=== PATIENT | female | born 1960 | race Caucasian/White ===

== ENCOUNTER → 2024-11-25 10:18 | Outpatient (REF) | payer MEDICARE, SELFPAY ==
[2024-11-25 10:40] LABS: MANUAL DIFF FLAG NO
--- NOTE | 2024-11-25 10:47 | ECG_ITS ---
Test Reason : PRE OP Blood Pressure : */* mmHG Vent. Rate : 89 BPM Atrial Rate : 89 BPM P-R Int : 146 ms QRS Dur : 84 ms QT Int : 352 ms P-R-T Axes : 18 21 25 degrees QTcB Int : 428 ms Normal sinus rhythm Possible Inferior infarct , age undetermined Abnormal ECG No previous ECGs available Referred By: Mike Marin Electronically Signed By: NICK HERNANDEZ MD
[2024-11-25 11:16] LABS: Basophils Percent Auto 0.6 % (0-2); Eosinophils Absolute Auto 0.1 X10*3/uL (0.0-0.4); Eosinophils Percent Auto 2.2 % (0-4); Hematocrit 41.7 % (37.0-47.0); Imm Gran Abs Auto 0.02 X10*3/uL (0.00-0.03); Imm Gran Pct Auto 0.3 % (0.0-0.4); Lymphocytes Absolute Auto 2.5 X10*3/uL (1.2-4.9); Lymphocytes Percent Auto 39.8 % (20-40); Mean Corpuscular HGB Conc 33.6 g/dl (31.0-35.0); Mean Corpuscular Hemoglobin 30.4 pg (27.0-33.0); Mean Corpuscular Volume 90.7 fL (80.0-98.0); Mean Platelet Volume 10.2 fL (9.4-12.3); Monocytes Absolute Auto 0.4 X10*3/uL (0.1-1.2); Monocytes Percent Auto 5.5 % (2-11); Neutrophils Absolute Auto 3.3 x10*3/uL (2.0-8.3); Neutrophils Percent Auto 51.6 % (45-73); Platelet Count 214 X10*3/uL (160-400); Red Cell Distribution Width 13.1 % (11.0-16.0); White Blood Count 6.4 X10*3/uL (4.8-10.8)
[2024-11-25 11:29] LABS: Estimated Average Glucose 160 mg/dL; Hemoglobin A1C 203.6548 umol/L; Hemoglobin A1c % 7.2 % (<6.0); Total Hemoglobin (HGBA1C) 3660.2242 umol/L
--- OUTSIDE RECORDS SUMMARY | 2024-11-25 11:59 | XMS_ITS | Clinical Summary ---
Author Organization [facility] Address [address] [place] [address] Care Team Providers Care Warehouse Assistant Name Role Phone Mike Marin MD Primary Care Provider [phone] Surgical History Surgery Date Site/Laterality Comments BACK SURGERY PROCEDURE:BACK SURGERY TUBAL LIGATION PROCEDURE:TUBAL LIGATION COLONOSCOPY PROCEDURE:COLONOSCOPY TONSILLECTOMY PROCEDURE:TONSILLECTOMY Medical History Medical History Date Comments Hypothyroidism DX:Hypothyroidis m Graves disease DX:Graves diseas e DM II (diabetes mellitus, ty pe II), controlled (CMS/HCC) DX:DM II (diabetes mellitus, type II), controlled ([facility]) Low back pain DX:Low back pain Hyperlipemia DX:Hyperlipemia Family History Medical History Relation Name Comments No Known Problems Brother 1 Hypertension Brother 2 Heart disease Father Hypertension Father COPD Mother Hypertension Mother Pulmonary embolism Mother No Known Problems Sister 1 No Known Problems Sister 2 Relation Name Status Comments Brother 1 Alive Brother 2 Alive Father (Age 80) Mother (Age 85) Sister 1 Alive Sister 2 Alive Social History Tobacco Use Types Packs/Day Years Used Date Smoking Tobacco: Former Cigarettes Q uit: 09/25/1992 Alcohol Use Standard Drinks/Week Comments Yes 0 (1 standard drink = 0.6 oz pur e alcohol) Comments Unknown Sex and Gender Information Value Date Recorded Sex Assigned at Not on file Legal Sex Female 8:18 PM EST Gender Identity Not on file Sexual Orientation Not on file Obstetrics History Last Filed Vital Signs Vital Sign Reading Time Taken Comments Blood Pressure 153/88 04/07/2023 8:22 AM EDT Sitting Left arm Pulse 90 04/07/2023 8:22 AM EDT Temperature - - Respiratory Rate - - Oxygen Saturation - - Inhaled Oxygen Concentration - - Weight 97.5 kg (215 lb) 04/07/2023 8:22 AM EDT Height 153.5 cm (5' 0.43 ) 04/07/2023 8 :22 AM EDT Body Mass Index 41.39 04/07/2023 8:22 AM EDT Plan of Treatment Health Maintenance Due Date Last Done Comments Breast Cancer Screening 1958 DTaP,Tdap,and Td Vaccines (1 - Tdap) 1977 Pneumococcal Vaccine: 50+ Ye ars (1 of 1 - PCV) 2008 Zoster Vaccines (1 of 2) 2008 RSV Immunization Patients 60 + Years Old (1 - Risk 60-74 years 1-dose series) 2018 Cholesterol Screening (Lipid Panel) 10/19/2023 Colorectal Cancer Screening: Colonoscopy 10/19/2023 Depression Screening 10/19/2023 Falls Risk Assessment 10/19/2023 Hepatitis C Screening 10/19/2023 Osteoporosis Screening (Bone Density Screening) 10/19/2023 Social Influencers of Health Screening 10/19/2023 COVID-19 Vaccine ( - 2023-2 5 season) 2024 Influenza Vaccine (#1) 2024 HIB Vaccines Aged Out No longer eligi ble based on patient's age to complete this topic HPV Vaccines Aged Out No longer eligi ble based on patient's age to complete this topic Hepatitis A Vaccines Aged Out No long er eligible based on patient's age to complete this topic Hepatitis B Vaccines Aged Out No long er eligible based on patient's age to complete this topic IPV Vaccines Aged Out No longer eligi ble based on patient's age to complete this topic MMR Vaccines Aged Out No longer eligi ble based on patient's age to complete this topic Meningococcal ACWY Vaccine Aged Out N o longer eligible based on patient's age to complete this topic Meningococcal B Vacine Aged Out No lo nger eligible based on patient's age to complete this topic RSV Immunization Patients Un eva 20 months Aged Out No longer eligible b ased on patient's age to complete this topic Varicella Vaccines Aged Out No longer eligible based on patient's age to complete this topic Medical Devices Implanted Type Area Brine Tank Tender Device Identifier Shelf Expiration Date Model / Serial / Lot Tritanium Cluster Hole Shell 48mm Stry-How [id number] Implanted:Qty: 1 on 05/01/2023 by Gonzales Wong MD Right: Hip [employer] [id number] 03/07/2028 702-04-48D / / [id number] Liner Trident X3 0 Deg 36mm 3.9mm Sz D Stry-Howm [id number] Implanted:Qty: 1 on 05/01/2023 by Gonzales Wong MD Right: Hip [employer] [id number] 01/12/2028 723-00-36D / / [id number] Lp Hex Screw 6.5x15mm Stry-Howm [id number] Implanted:Qty: 1 on 05/01/2023 by Gonzales Wong MD Right: Hip [employer] [id number] 11/15/2027 [id number] / / [id number] Lp Hex Screw 6.5x25mm Stry-Howm [id number] 58 Implanted:Qty: 1 on 05/01/2023 by Gonzales Wong MD Right: Hip [employer] [id number] 01/18/2028 2177-5413 / / [id number] Size 4 Accolade Ii 127 Deg Stry-Howm [id number] Implanted:Qty: 1 on 05/01/2023 by Gonzales Wong MD Right: Hip [employer] [id number] 03/15/2028 8204-7173 / / [id number] Hip Head Delta Biolox 36mm -5 Stry-Howm [id number] Implanted:Qty: 1 on 05/01/2023 by Gonzales Wong MD Right: Hip [employer] [id number] 02/05/2028 6570-0-036 / / [id number] Care Teams Warehouse Assistant Relationship Specialty Start Date End Date Mike Marin MD [address] [place] [id number] PCP - General 04/27/23
--- OUTSIDE RECORDS SUMMARY | 2024-11-25 11:59 | XMS_ITS ---
Author Organization Mike Marin III, MD Address [address] [place] [address] [place] [address] Care Team Providers Care Press Helper Name Role Phone Mike Marin Primary Care Provider [phone] Results Component Value Reference Range Notes Hemoglobin A1c (Not yet revi ewed by provider) Interpretation: Performing Lab:[facility], [address] [place] [phone] Notes/Report: Hemoglobin A1c % 7.2 <6.0 % [...] average glucose, using the formula of the L8O-Uvaduxk Average Glucose study (ADAG), Diabetes Care, Vol.31,#8, Apr. 2007 REASON FOR VISIT Pre Op Appt Social History Sex Assigned At : Social History Observation Description Sex Assigned At Female Encounters Encounter Location Date Provider Diagnosis Mike Marin III, MD [address] [place] [address] [place] [address] 11/22/2024 Mike gomez Z01.818 ; Type 2 diabetes mellitus without [...] Order Date CBC WITH AUTO DIFF 11/22/2024 Basic Metabolic Panel 11/22/2024 ECG 12 lead EKG 11/22/2024 Hemoglobin A1c 11/22/2024 Next Appt Details Provider Name:Mike Marin, 11/29/2024 01:00:00 PM, [address] [place] [address] [address] [place], KARTHIK WEBB, [address], Provider Name:Mike Marin, 01/14/2025 10:00:00 AM, [address] [place] [address] [address] [place], KARTHIK WEBB, [address], Progress Notes * Cherise ROSSDOB: 8 (64 yo F)Acc No.[id number]:11/22/2024 Patient:?Cherise ROSS :1960???Age:64 Y???Sex:Female Address:[address] [place] [phone] Subjective: * Chief Complaints: * ???Pre Op Appt * Medical History:? * Surgical History:? * Hospitalization/Major Diagno stic Procedure:? * Medications:? Objective: * Vitals:? * Physical Examination:? Assessment: * Assessment: 1.?Preoperative clearance - Z01.818???2.?Type 2 diabetes mellitus without complication, without long-term current use of insulin - E11.9???3.?Obesity (BMI 30-39.9) - E66.9??? Plan: * Treatment: ? Value Reference Range ?Hemoglobin A1c % 7.2 H <6.0 - % * ?Estimated Average Glucose 160 - mg/dL ?Imaging: ECG 12 lead EKG2.?Type 2 diabetes mellitus without complication, without long-term current use of insulin?LAB: CBC WITH AUTO DIFF ?LAB: Basic Metabolic Panel ?LAB: Hemoglobin A1c (Collection Date & Time - 11/25/2024 10:39 AM)* ? Value Reference Range ?Hemoglobin A1c % 7.2 H <6.0 - % * ?Estimated Average Glucose 160 - mg/dL 3.?Obesity (BMI 30-39.9)?LAB: CBC WITH AUTO DIFF ?LAB: Basic Metabolic Panel ?LAB: Hemoglobin A1c (Collection Date & Time - 11/25/2024 10:39 AM)* ? Value Reference Range ?Hemoglobin A1c % 7.2 H <6.0 - % * ?Estimated Average Glucose 160 - mg/dL * Procedure Codes:? * true * Date:? Generated for Chadd luna/Jose/eTransmitting on:?11/25/2024 11:59 AM EST
--- OUTSIDE RECORDS SUMMARY | 2024-11-25 11:59 | XMS_ITS ---
Author Organization Mike Marin III, MD Address [address] [place] [address] [place] [address] Care Team Providers Care Commodity Lead Name Role Phone Mike Marin Primary Care Provider REASON FOR VISIT Follow up Social History Sex Assigned At : Social History Observation Description Sex Assigned At Female Encounters Encounter Location Date Provider Diagnosis Mike Marin III, MD [address] [place] [address] [place] [address] 04/10/2024 Mike Marin Plan Of Treatment Next Appt Details Provider Name:Mike Marin, 11/29/2024 01:00:00 PM, [address] [place] [address] [place], [address], Provider Name:Mike Marin, 01/14/2025 10:00:00 AM, [address] [place] [address] [place], [address], Progress Notes * Cherise ROSSDOB: 8 (64 yo F)Acc No.[id number]:04/10/2024 Progress Notes Patient:?Cherise ROSS Provider:?Mike Marin MD :1960???Age:63 Y???Sex:Female D ate:04/10/2024 Address:[address] [place] [id number] Subjective: * Chief Complaints: * ???1. Follow up. * Medical History:? Objective: * Vitals:? Assessment: Plan: * Treatment: * Images: * The named appointment provid er may or may not be the originator of this progress note, and it is not deemed complete until electronically signed by the appointment provider. Sign off status: Pending * Provider:?Mike Marin MD Date:?03/25 Generated for Chadd luna/Jose/Antonioitting on:?11/25/2024 11:59 AM EST
--- OUTSIDE RECORDS SUMMARY | 2024-11-25 11:59 | XMS_ITS | Clinical Summary ---
Author Organization [facility] Address [address] [place] [address] Care Team Providers Care Shovel Logger Name Role Phone Mike Marin MD Primary Care Provider [phone] Allergies Active Allergy Reactions Criticality Noted Date Comments Exenatide Hives 04/03/2023 Medications Medication Sig Dispensed Refills Start Date End Date Status levothyroxine (SYNTHROID) tablet 100 mcg daily. 0 02/07/2023 Active liothyronine (CYTOMEL) tablet 5 mcg Take 1 tablet (5 mcg total) by mouth daily. empty stomach 0 03/27/2023 Active simvastatin (ZOCOR) tablet 40 mg Take 1 tablet (40 mg total) by mouth every evening. 0 03/04/2023 Active Trulicity 1.5 MG/0.5ML subcutaneous pen-injector On Monday night 0 03/27/2023 Active Multiple Vitamin (MULTIVITAMIN ADULT PO) Take 1 tablet by mouth daily. 0 10/17/2008 Active Acetaminophen (TYLENOL EXTRA STRENGTH PO) Take by mouth every 8 (eight) hours as needed. 0 Active meloxicam (MOBIC) 15 MG tablet Take 1 tablet (15 mg total) by mouth daily. 30 tablet 0 05/02/2023 Active methocarbamol (ROBAXIN) 750 MG tablet Take 1 tablet (750 mg total) by mouth every 6 (six) hours as needed (for muscle spasm). 30 tablet 0 05/02/2023 Active oxyCODONE (ROXICODONE) 5 MG immediate release tablet Take 1 tablet (5 mg total) by mouth every 4 (four) hours as needed for pain. 25 tablet 0 05/02/2023 Active senna-docusate (PERICOLACE) 8.6-50 MG Take 1 tablet by mouth 2 (two) times a day. 20 tablet 0 05/02/2023 Active Active Problems Problem Noted Date Diagnosed Date Morbid obesity 04/07/2023 Family history of pulmonary embolism 04/07/2023 Osteoarthritis of right hip 04/07/2023 History of hyperlipidemia 04/07/2023 Family History Medical History Relation Name Comments No Sig Med Hx Brother 1 Hypertension Brother 2 Heart disease Father Hypertension Father COPD Mother Hypertension Mother Pulmonary embolism Mother No Sig Med Hx Sister 1 No Sig Med Hx Sister 2 Relation Name Status Comments Brother 1 Alive Brother 2 Alive Father (Age 80) Mother (Age 85) Sister 1 Alive Sister 2 Alive Social History Tobacco Use Types Packs/Day Years Used Date Smoking Tobacco: Former Cigarettes 0.5 5 Q uit: 1992 Alcohol Use Standard Drinks/Week Comments Yes 0 (1 standard drink = 0.6 oz pur e alcohol) rarely Sex and Gender Information Value Date Recorded Sex Assigned at Female 04/03/2023 9:17 AM EDT Gender Identity Female 04/03/2023 9:17 AM EDT Sexual Orientation Not on file Job Start Date Occupation Industry Not on file Not on file Not on file Last Filed Vital Signs Vital Sign Reading Time Taken Comments Blood Pressure 120/64 05/02/2023 6:16 AM EDT Pulse 89 05/02/2023 6:16 AM EDT Temperature 36.6 ??C (97.9 ??F) 05/02/2023 6:16 AM ED T Respiratory Rate 16 05/02/2023 6:16 AM EDT Oxygen Saturation 95% 05/02/2023 6:16 AM EDT Inhaled Oxygen Concentration - - Weight 98 kg (216 lb) 05/01/2023 6:52 AM EDT Height 156.2 cm (5' 1.5 ) 05/01/2023 6:52 AM EDT Body Mass Index 40.15 05/01/2023 6:52 AM EDT Plan of Treatment Health Maintenance Due Date Last Done Comments Hepatitis C Screening 1960 COVID-19 Vaccine (#1) 1958 Depression Screening 1970 BMI Counseling 1976 Preventative Health Evaluation 1976 DTap / Tdap / Td (1 - Tdap) 1977 Colon Cancer Screening (Colonoscopy) 2003 Breast Cancer Screening (Mammogram) 2008 Shingrix-Zoster Vaccine (1 o f 2) 2008 Fall Risk Assessment 2023 Osteoporosis Screening (DEXA Scan) 2023 Pneumococcal Vaccine (2 of 2 - PCV) 2023 10/19/2011 Influenza Vaccine (#1) 2024 2, 08/18/2021, 06/25/2015 RSV Adult > 60+ Yrs or (1 - 1-dose 75+ series) 2033 Hepatitis B Vaccines Aged Out No long er eligible based on patient's age to complete this topic RSV Ped < 20 months Aged Out No longe r eligible based on patient's age to complete this topic Medical Devices Implanted Type Area Fashion Buyer Device Identifier Shelf Expiration Date Model / Serial / Lot Tritanium Cluster Hole Shell 48mm Stry-Howm [id number] - [id number] Implanted:Qty: 1 on 05/01/2023 by Gonzales Wong MD at [facility] [place] [facility] and Med Right: Hip [employer] [id number] 03/07/2028 702-04-48D / / [id number] Liner Trident X3 0 Deg 36mm 3.9mm Sz D Stry-Howm [id number] - [id number] Implanted:Qty: 1 on 05/01/2023 by Gonzales Wong MD at [facility] and Med Right: Hip [employer] [id number] 01/12/2028 723-00-36D / / [id number] Lp Hex Screw 6.5x15mm Stry-Howm [id number] - [id number] Implanted:Qty: 1 on 05/01/2023 by Gonzales Wong MD at [facility] and Med Right: Hip [employer] [id number] 11/15/2027 1289-9880 / / [id number] Lp Hex Screw 6.5x25mm Stry-Howm [id number] 58 - [id number] Implanted:Qty: 1 on 05/01/2023 by [place] Wong [place] [facility] [place]: Hip [employer] [id number] 01/18/2028 7789-6913 / / [id number] Size 4 Accolade Ii 127 Deg Stry-Howm [id number] 76 - [id number] Implanted:Qty: 1 on 05/01/2023 by Gonzales Wong MD at [facility] Right: Hip [employer] [id number] 03/15/2028 7641-3269 / / [id number] Hip Head Delta Biolox 36mm -5 Stry-Howm [id number] - [id number] Implanted:Qty: 1 on 05/01/2023 by Gonzales Wong MD at [facility] Right: Hip [employer] [id number] 02/05/2028 6570-0-036 / / [id number] Advance Directives For more information, please contact: [phone] Latest Code Status on File Code Status Date Activated Date Inactivated Comments Full Code 05/01/2023 8:56 AM 05/02/2023 5:45 PM This co de status was ascertained in the following way: per living will or healthcare instructions . Code Status History Code Status Date Activated Date Inactivated Comments Full Code 05/01/2023 6:28 AM 05/01/2023 8:56 AM This co de status was ascertained in the following way: discussion with patient . Care Teams Shovel Logger Relationship Specialty Start Date End Date Mike Marin MD [address] [place] [address] PCP - General Oncology 04/27/23
--- OUTSIDE RECORDS SUMMARY | 2024-11-25 12:00 | XMS_ITS ---
Author Organization Mike Marin III, MD Address [address] [place] [address] Care Team Providers Care Television Cameraman Name Role Phone Mike Marin Primary Care Provider Allergies Allergen (clinical drug ingredient) Drug/Non Drug Allergy documented on EMR Reaction Allergy Type Onset Date Status exenatide Byetta 10 MCG Pen Unknown Drug Allergy [...] Date Provider Diagnosis Mike Marin III, MD [address] [place] [address] [place] [address] 06/27/2024 Mike Marin Hypothyroidism, unspecified E03.9 ; [...] Barbara son: OV, Annual Exam Provider Name:Mike Marin, 11/29/2024 01:00:00 PM, [address], [place], [id number], Provider Name:Mike aMrin, 01/14/2025 10:00:00 AM, [address], [place], [id number], Progress Notes * Cherise ROSSDOB: [birth year] (64 yo F)Acc No.[id number]:06/27/2024 Progress Notes Patient:?Cherise ROSS Provider:?Mike Marin MD :1960???Age:64 Y???Sex:Female D ate:06/27/2024 Address:[address] [facility] Subjective: * Chief Complaints: * ???Morbid obesityDiabetes me llitusChronic low back painHypothyroidRight hip replacementHypertension * HPI: ???COVID-19 Screening:?She returns for medical management.? 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 She and her will be spending 6 months of the year in [place].? She will leave in the coming July and return in December of 2024.? Her prescriptions will be transferred to [facility] in [place].? She will continue on Trilisate.? She declined an offer Ozempic her weight has been stable.? She has no new concerns. Blood work done June 26, 2024 showed white count 7.5, hematocrit 43.9 platelets 225, glucose 190, BUN 15, creatinine 0.61, total cholesterol 174, triglycerides 198, HDL 44 LDL 96 A1c 7.9. ?Questions?Have you experienced fever, chills, cough, sore throat, shortness of breath, difficulty breathing, muscle aches, loss of taste or smell??No ?Have you been exposed to the virus within the last 10 days??No ?Have you travelled internationally in the last 10 days??No ?Have you been exposed to COVID-19 in the past??Yes * ROS:?General/Constitutional:?pain?only normal aches and pains.?Chills?denies.?Fatigue?admits.?Fever?denies.?ENT:?Decreased hearing?denies.?Respiratory:?Cough?denies.?Cardiovascular:?Chest pain with exertion?denies.?Dyspnea on exertion?denies.?Shortness of breath?denies.?Gastrointestinal:?Constipation?occasional.?Decreased appetite?denies.?Diarrhea?denies.?Heartburn?occasional.?Nausea?denies.?Rectal bleeding?denies.?Vomiting?denies.?Hematology:?bruising?denies.?petechiae?denies.?Swollen glands?none have been noted.?Genitourinary:?Frequent urination?at night.?Musculoskeletal:?Muscle aches?denies.?Painful joints?denies.?Sciatica?denies.?Weakness?denies.?Skin:?Itching?denies.?Rash?denies.?Skin lesion(s)?denies.?Neurologic:?Difficulty speaking?denies.?Dizziness?denies.?Headache?denies.?Low back pain?denies.?Psychiatric:?Depressed mood?denies.? * Medical History:? * Surgical History:?breast bio psy 2007fracture right wrist lumbosacral spine decompressions procedure 1997tonsillectomy tubal ligation [id number] colonoscopy Right total hip replacement 05/01/2023 * Hospitalization/Major Diagno stic Procedure:?Denies Past Hospitalization * Family History:?Father: dece ased 78 yrs, coronary artery disease, hypertension, type II diabetes.?Mother: alive 75 yrs, hypertension, hyperlipidemia.?Paternal Grand Father: , stroke.?Maternal Grand Mother: , stomach cancer.?Spouse: alive.?2 brother(s) , 2 sister(s) - healthy. 2 daughter(s) - healthy. .? Her brothers and sisters, and children are healthy and well. * Social History:?Tobacco Use:?Tobacco Use/Smoking?Patient is a?former smoker ?How long has it been since you last smoked??> 10 years ?Additional Findings: Tobacco Non-User?Ex-cigarette smoker ???She was born in [place], [place]. She has 2 daughters, Gay and Abby. She has 2 brothers Sudhakar, Jeremiah and 2 sisters Abby and Rohit. * Medications:?TakingOmeprazol e 20 MG Capsule Delayed Release 1 capsule [...] reviewed and reconciled with the patient * Allergies:?Byetta 10 MCG Pen no[Allergies Verified] Objective: * Vitals:?Ht: 62, Wt:237, BMI: 43.34, BP:134/83, HR:91, Temp:97.5, Wt-k.5. * Examination: ???General Examination: ?GENERAL APPEARANCE:?pleasant, well nourished, well developed, in no acute distress, calm and relaxed, morbidly obese, woman.?HEAD:?atraumatic, normocephalic.?EYES:?eomi, perrla, anicteric, conjugate.?EARS:?normal.?NOSE:?septum intact.?ORAL CAVITY:?normal, unremarkable.?NECK/THYROID:?no jugular venous distention, no carotid bruit, thyroid normal.?LYMPH NODES:?no enlarged lymph nodes,spleen normal.?SKIN:?no suspicious lesions, anicteric.?HEART:?no clicks, gallops, murmurs, or rubs, regular rhythm, S1, S2 normal, no s3, or vascular bruits.?LUNGS:?clear to auscultation .?BREASTS:?not examined.?ABDOMEN:?bowel sounds normal, no ascites, no organomegaly, no mass, morbid obesity.?RECTAL EXAM:?not examined.?MUSCULOSKELETAL:?extremities unremarkable, no clubbing, cyanosis or edema,Surgical scar right hip.?PERIPHERAL PULSES:?normal.?NEUROLOGIC:?alert and oriented, cranial nerves 2-12 grossly intact, deep tendon reflexes 2+ symmetrical, motor strength normal upper and lower extremities, sensory exam intact.?PSYCH:?alert, oriented, thought process logical, goal directed, speech clear, good eye contact, cooperative with exam, cognitive function intact.? Assessment: * Assessment: 1.?Type 2 diabetes mellitus without complication, without long-term current use of insulin - E11.9 (Primary)???Notes :We have discussed her hemoglobin A1c at length.? We have discussed her weight loss strategy. We have discussed the use of injected semaglutide.? She is going to continue her efforts at lifestyle modification to lose weight.? No change in her medications was made.???2.?Hypothyroidism, unspecified - E03.9???Notes :Her thyroid function tests are in the normal range and no change in her medication dosage is needed.???3.?Obesity (BMI 30-39.9) - E66.9???Notes :Her weight is stable in the morbidly obese range.? We discussed this at length today.? She declined the use of semaglutide.???4.?Other intervertebral disc degeneration, lumbosacral region - M51.37???Notes :The pain in her spine has been absent lately and she is completing all of the activities of daily living without difficulty.???5.?Other benign mammary dysplasias of unspecified breast - N60.89???Notes :She conducts breast self-examination and no findings are evident. She will continue to have annual mammograms.???6.?Primary osteoarthritis of right hip - M16.11???Notes :She has no pain in her right hip with ambulation at this time after arthroplasty..???7.?Former smoker - Z87.891???Notes :She is highly motivated not to smoke and has a plan for prevention of relapse in times of stress or illness.??? Plan: * Treatment: 2.?Hypothyroidism, unspecifi ed? Continue Liothyronine Sodium Tablet, 5 MCG, 1 tablet on an empty stomach, Orally, Once a day, 90 days, 90 Tablet, Refills 3;?Continue Synthroid Tablet, 100 MCG, as directed, Orally, Once a day, 90 days, 90, Refills 3;?Continue Omeprazole Capsule Delayed Release, 20 MG, 1 capsule 30 minutes before morning meal, Orally, Once a day;?Continue Trulicity Solution Pen-injector, 1.5 MG/0.5ML, as directed, Subcutaneous, weekly.?LAB: PROFILE, FASTING (COMPREHENSIVE METABOLIC) ?LAB: TSH (THYROID STIMULATING HORMONE) ?LAB: CBC WITH AUTO DIFF ?LAB: Lipid Panel ?LAB: Free T4 (Free Thyroxine) ?LAB: Hemoglobin A1c 3.?Obesity (BMI 30-39.9)?LAB: PROFILE, FASTING (COMPREHENSIVE METABOLIC) ?LAB: TSH (THYROID STIMULATING HORMONE) ?LAB: CBC WITH AUTO DIFF ?LAB: Lipid Panel ?LAB: Free T4 (Free Thyroxine) ?LAB: Hemoglobin A1c 4.?Others? Continue Simvastatin Tablet, 40 MG, 1 tablet in the evening, Orally, Once a day, 90 days, 90 Tablet, Refills 3;?Continue Trulicity Solution Pen-injector, 1.5 MG/0.5ML, as directed, Subcutaneous, weekly, 90 days, 12, Refills 3;?Continue Valsartan Tablet, 80 MG, 1 tablet, Orally, Once a day, 90 days, 90 Tablet, Refills 3.?? * Procedure Codes:? * Preventive Medicine:? ??Counseling:?Care goal follow-up plan:?Counseling for abnormal BMI given?Yes ?Above Normal BMI Follow-up?Dietary management education, guidance, and counseling, Dietary needs education, Exercise promotion: strength training, Exercise promotion: stretching, Feeding regime, Giving encouragement to exercise, Lifestyle education regarding diet, Nutrition / feeding management, Nutrition therapy, Prescribed activity/exercise education, Prescribed diet education, Prescribed dietary intake, Special diet education, Weight monitoring , Intervention, Order not done: Medical or Other reason not done ?Smoking/Tobacco Use?Patient counseled on the dangers of tobacco use and urged to quit.?06/27/2024 ??DM Care Plan:?Patient Lifestyle Goals?Patient wants to be able to manage diabetes without too much effort.?Treatment Goals?HbA1C < 7.0, Blood Sugars less than < 115.?Barriers?no barriers.?Self-Managment Goals?Work on weight loss, with a goal of losing 1 lb per week.? * Follow Up:?As Scheduled ([place] son: OV, Annual Exam) * Images: * Sign off status: Completed true * Provider:?Mike Marin MD Date:?11/2023 Generated for Printi ng/Facarolinag/eTransmitting on:?11/25/2024 11:59 AM EST History and Physical Notes * HPI (History of Present Illness) Category Sub-Category Detail Notes COVID-19 Screening Questions Have you had any new onset fever, chills, cough, congestion, sore throat, shortness of breath, muscle aches?: No Have you been exposed to the virus withi n the last 10 days?: No Have you travelled internationally in e last 10 days?: No Have you been [...]
--- OUTSIDE RECORDS SUMMARY | 2024-11-25 12:00 | XMS_ITS | Data Portability ---
Author Organization [place] - [facility],, ANU FOSTER MD Address [address] [facility] [facility] [place] [address] Care Team Providers Care Retail Sales Representative Name Role Phone KEISHA FIGUEROA Primary Care Provider Assessment No assessment recorded. Plan of Treatment Reminders Order Date Submit Date Provider Last Modified By Organization Details Last Modified Time Details Appointments None recorded. Lab cytology report, thin prep, smear or scraping, cervical or vaginal 2023 024 MARELY [facility] (Centralized Electronic Ordering - All Locations), Patient Can Go To The Location Of Their Choice, [id number] 4 18:09:38 hemoglobin , gastrointe stinal, stool 2023 024 [email or web address] 1 In-Office Order, Internal Use Only DO Not Attach Compendium DO Not Attach Compendium, Do Not Delete/merge, [id number] 4 14:34:26 pap test, thinprep, cervical 2022 023 [facility] (Centralized Electronic Ordering - All Locations), Patient Can Go To The Location Of Their Choice, [id number] 3 07:45:16 fecal occult blood, stool 2022 023 [email or web address] 1 In-Office Order, Internal Use Only DO Not Attach Compendium DO Not Attach Compendium, Do Not Delete/merge, [id number] 3 10:00:20 pap test, thinprep, cervical 2021 022 MARELY [facility] (Centralized Electronic Ordering - All Locations), Patient Can Go To The Location Of Their Choice, [id number] 2 11:34:34 fecal occult blood, stool 2021 022 [email or web address] 1 In-Office Order, Internal Use Only DO Not Attach Compendium DO Not Attach Compendium, Do Not Delete/merge, [id number] 2 12:31:50 pap test, thinprep, cervical [facility]), Patient Can Go To The Location Of Their Choice, [id number] 5 07:48:32 fecal occult blood, stool 2014 015 [email or web address] 1 In-Office Order, Internal Use Only DO Not Attach Compendium DO Not Attach Compendium, Do Not Delete/merge, [id number] 5 15:31:08 Referral None recorded. Procedures None recorded. Surgeries None recorded. Imaging MAMMO, screening, digital, bilateral - Breast Aspiration and/or Biopsy if needed 2023 024 [facility], [address], [place], [address], 4 15:17:48 bone density 2023 024 [facility], [address], [address], [place], [address], 4 15:17:48 MAMMO, screening, digital, bilateral - Breast Aspiration and/or Biopsy if needed 2022 023 [email or web address], [address], [address], [place], [address], 4 07:43:56 MAMMO, screening, digital, bilateral 2021 022 [facility] Orders, [address], [address], [place], [address], 2 09:11:00 bone density 2021 022 [facility] Orders, [address], [address], [place], [address], 2 13:11:29 MAMMO, screening, digital, bilateral 2014 015 [email or web address] [facility], [address], [place], [address], 6 12:07:34 Medication Orders Estrace 0.01% (0.1 mg/gram) vaginal cream 2014 015 [facility], [address] [facility], [place], [address], 2 11:10:48 Patient TargetsNo targets recorded. 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 She has developed increased urinary stress incontinence in the past two to three years, she had menopause 5 to 6 years ago.? ? ? She is wearing small poise pads and changing them during the day.? ? ? We discussed the benefit of E2 vaginal cream and she agrees to try this. We discussed having her begin to take hormone replacement therapy. We discussed the need to take a progestin if a uterus is present, and the rationale behind that. We discussed the stated risks of one in 10,000 of development o fa blood clot/DVT/PE tht could be life threatening. We discussed the Women's Health Initive study and the findings. We discused the PEPPI study as well. She is aware that there are conflicting reports in the medical literature concerning the risks and benefits of HRT. We disussed that women are advised by ACOG to take HRT in the lowest dose necessary, and for the shortest time necessary, to control their symptoms. After a long discussion of the potential risks and benefits of HRT she elects to begin HRT. All questions answered. Rx for HRT is called in to the pharmacy. Call if any vaginal bleeding occurs upon initiation of HRT, or at any time postmenopausally. She appears to be doing well. She is advised to get 1500 mg of calcium daily into her diet and supplements combined. There is a health benefit with adequate vitamin D supplementation to at least 400 units daily, daily aerobic exercise of 30 minutes, and stress reduction. Monthly self breast exam was taught, and stressed, and is advised to call if she discovers any new mass in the breast. ? ? ? Seat belt use for herself and passengers are advised. There are significant health benefits of becoming and remainig fit, with an optimal BMI. There is a potential reduction in chronic discomfort, diminished risks of hypertension, diabetes, and heart disease with the proper weight management. With a recommended BMI there can be improved mobility as she ages. Strategies to reach and maintain her target weight were discussed in detail. Not available 11/24/2014 15:31:08 01/25/2022 [id number] learning about healthy weight Not available 01/25/2022 12:31:50 learning about menopause Not available 01/25/2022 12:31:50 She is here for annual exam, has not been here since 2014, she notes she has not had a pap anywhere else. She is getting her annual mammograms, though. Due for bone density. 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 She appears to be doing well. She is advised to get 1500 mg of calcium daily into her diet and supplements combined. We discussed the benefits of adequate vitamin D supplementation to at least 400 units daily, daily aerobic exercise of 30 minutes, and stress reduction. Monthly self breast exam was taught, and stressed, and is advised to call if she discovers any new mass in the breast. Not available 01/25/2022 12:31:34 04/22/2022 [id number] calcium requirem ent education [facility] Not available 04/22/2022 09:16:14 osteoporosis education [facility] Not available 04/22/2022 09:16:14 This visit is a phone telehealth visit. The patient consented to the visit by phone. The patient was at [facility] on vacation at the time of the call and the provider and patient were the only people on the line. I was at [address] [facility], [address], [place], [place], at the time of the call. Her T score of her femoral neck is -1.5. Note from 02/13: She is here for annual exam, has not been here since 2014, she notes she has not had a pap anywhere else. She is getting her annual mammograms, though. Due for bone density. We discussed her new diagnosis of osteopenia. We reviewed the results of her bone density test, with reference to the computer images. We discussed the way that standard deviation is used for diagnosis, and what this means to her as she ages. Adequate calcium intake of 1500 mg daily, weight bearing exercise three times a week, and vitamin D supplementation of at least 400 units daily is suggested. She is advised to avoid tobacco, coffee, and steroids if possible. Benefits of an active lifestyle discussed as well. All questions answered. We discussed the different forms of medical treatment for osteoporosis, in case she might need this in the future. She will repeat the bone density testing in 2 years to assess her progress.She is aware that if her bone density diminished significantly in the intervening 2 years she may need medical therapy at that time. She is encouraged to try this preventive therapy first. Return for routine annual exam as scheduled. The patient was agreeable to this plan. She is aware of the limitations caused by the covid restrictions, and this phone call, but was appreciative of the efforts to complete the evaluation. Face to face discussion for 30 minutes. Not available 04/22/2022 09:17:00 02/03/2023 [id number] learning about healthy weight Not available 02/03/2023 10:00:20 She is here for annual, doing well, no health issues, her type 2 diabetes is better with her new diet. She is doing better with adequate calcium intake after her bone density last year showed worsening osteopenia. _ She is here for annual exam, has not been here since 2014, she notes she has not had a pap anywhere else. She is getting her annual mammograms, though. Due for bone density. She appears to be doing well. Monthly self breast exam was taught, and stressed, and is advised to call if she discovers any new mass in the breast. Not available 02/03/2023 10:01:24 03/11/2024 [id number] learning about healthy weight Not available 03/11/2024 14:34:25 She is here for annual, doing well. Last bone density was 2021. She plans to retire at the end of April. Note from 2022: She is here for annual, doing well, no health issues, her type 2 diabetes is better with her new diet. She is doing better with adequate calcium intake after her bone density last year showed worsening osteopenia. She appears to be doing well. . Monthly self breast exam was taught, and stressed, and is advised to call if she discovers any new mass in the breast. Not available 03/11/2024 14:34:40 Reason for Referral None Reported. Results Created Date Observation Date Name Description Value Unit Range Abnormal Flag Note LastModifiedBy Organization Detail LastModifiedTime 11/25/19 15 11/24/2014 fecal occul t blood , stool Occult Blood negati ve Not Available In-Office Order Internal Use Only DO Not Attach Compendium DO Not Attach Compendium, Do Not Delete/merge, [id number] 11/24/2014 08:46:03 01/26/20 22 01/25/2022 fecal occul t blood , stool Occult Blood negati ve Not Available In-Office Order Internal Use Only DO Not Attach Compendium DO Not Attach Compendium, Do Not Delete/merge, [id number] 01/25/2022 10:42:33 02/04/20 23 02/03/2023 [facility]TOL [facility]GY results Patie nt Name: CHERISE ROSAS nt : 1959 (Age: 62) Lab Acces tiffanie #: [id number] Colle ction Date: 2022 Acces tiffanie Date: 2022 Sign Out Date: 2022 Tissu e Sourc e: 1: THINP REP HORSESHOER PAP TEST, CERVI VILMA: Final Diagn osis: NEGAT ANNETTE FOR INTRA EPITH ELIAL LESIO N OR MALIG GLADYS . Satis facto ry for evalu ation . Endoc ervic al/tr ansfo rmati on zone prese nt. Clini vilma Histo ry: Date of Last Menst rual Perio d: not avail able Menst rual Histo ry: Post- menop ausal Contr acept annette Histo ry: not avail able Ancil silva Testi ng: HPV (ASCU S) Case image d by the ThinP rep Imagi ng Syste m with nikkie chaudharyr sarah kline or avinash roberts Perfo rmed at [facility] ate Refer ence [facility], [address] [place] Clini vilma Histo ry (othe r): Z01.4 19,LP S 2 NEG Phone #: [phone], On-Ca ll Patho logis t: [id number] Not Available [facility] (Centralized Electronic Ordering - All Locations) Patient Can Go To The Location Of Their Choice, [id number] 02/16/2023 15:19:40 02/04/20 23 02/03/2023 fecal occul t blood , stool Occult Blood negati ve Not Available In-Office Order Internal Use Only DO Not Attach Compendium DO Not Attach Compendium, Do Not Delete/merge, [id number] 02/03/2023 09:35:47 03/11/20 24 03/13/2024 IGP, RFX APTIM A HPV ASCU diagnosis: Commen t NEGAT ANNETTE FOR INTRA EPITH ELIAL LESIO N OR MALIG GLADYS . Not Available [facility] ([facility]) [address], [place], [address], 03/13/2024 18:09:38 06/17/20 24 03/13/2024 IGP, RFX APTIM A HPV ASCU specimen adequacy: Phyllis camp Satis michelleo fanny for evalu ation . No endoc ervic al compo nent is ident ified . Not Available [facility] ([facility]) [address] [place], [address], 03/13/2024 18:09:38 03/11/20 24 03/13/2024 IGP, RFX APTIM A HPV ASCU clinician provided ICD10: Phyllis camp Z01.4 19 Not Available [facility] ([facility]) [address] [place], [address], 03/13/2024 18:09:38 03/11/20 24 03/13/2024 IGP, RFX APTIM A HPV ASCU performed by: Phyllis Byrd Prior , Cytot evie camp (ASCP ) Not Available [facility] ([facility]) [address] [facility], [place], [address], 03/13/2024 18:09:38 03/11/20 24 03/13/2024 IGP, RFX APTIM A HPV ASCU . . Not Available [facility] ([facility]) [address] [place], [address], 03/13/2024 18:09:38 03/11/20 24 03/13/2024 IGP, RFX APTIM A HPV ASCU note: Phyllis camp The Pap smear is a scree alan test desig nicholas to aid in the detec tion of ella ligna nt and malig nant condi tions of the uteri ne cervi x. It is not a diagn ostic proce dure and shoul d not be used as the sole means of detec ting cervi vilma cance r. Both false -posi tive and false -nega tive repor ts do occur . Not Available [facility] ([facility]) [address] [place], [address], 03/13/2024 18:09:38 03/11/20 24 03/13/2024 IGP, RFX APTIM A HPV ASCU test methodology: Commen t This liqui d based ThinP rep(R ) pap test was acacia peterson with the use of an image guide johnson vicente Not Available [facility] ([facility]) [address] [facility], [place], [address], 03/13/2024 18:09:38 03/11/20 24 03/13/2024 IGP, RFX APTIM A HPV ASCU . Commen t The HPV DNA refle x crite skip were not met with this speci men resul t there fore, no HPV testi ng was perfo rmed. Not Available [facility] ([facility]) [address] [facility] [facility], [place], [address], 03/13/2024 18:09:38 03/11/20 24 03/11/2024 hemog lobin , gastr ointe madalyn l, stool Occult Blood negati ve Not Available In-Office Order Internal Use Only DO Not Attach Compendium DO Not Attach Compendium, Do Not Delete/merge, [id number] 03/11/2024 14:04:54 12/09/19 17 12/08/2016 MAMMO , scree alan, digit al, bilat eral No observ ation record ed. mpotorski [facility] ([facility]) [address] , [place], [address], 12/09/2016 08:22:51 04/07/20 22 04/07/2022 MAMMO , scree alan, digit al, bilat eral No observ ation record ed. [facility] [address], [place], [address], 04/07/2022 10:36:35 04/07/20 22 04/07/2022 bone densi ty No observ ation record ed. [facility] [address], [place], [address], 04/07/2022 14:13:46 Result Notes None recorded. Problems Name Problem SNOMED Code Status Onset Date Resolution Date Notes Provider Name and Address Organization Details Recorded Time Genuine stress incontinen ce 34122217 Active 2012 She has developed increased urinary stress incontinen ce in the past two to three years, she had menopause 5 to 6 years ago. She is wearing small poise pads and changing them during the day. We discussed the benefit of E2 vaginal cream and she agrees to try this. Anu Foster MD [address], [place], [address], [place] [facility], 5 15:31:07 Atrophic vaginitis 55776463 Active Anu Foster MD [address], [place], [address], [place] [facility], 5 15:31:07 Osteopenia 847558209 Active 2021 Anu Foster MD [address], [place], [address], [place] [facility], 2 09:15:36 Postmenopa usal bleeding 22356437 Active Anu Foster MD [address], [place], [address], [place] [facility], 3 13:41:57 Specialize d medical examinatio n Active Anu Foster MD [address], [place], [address], [place] [facility], 5 15:31:07 Screening for malignant neoplasm of rectum Active Anu Foster MD [address], [place], [address], [place] [facility], 5 15:31:07 Screening mammograph y Active Anu Foster MD [address], [place], [address], [place] [facility], 15:31:07 Notes:Bilateral cateracts, w orse on th right side Problem Notes None recorded. Procedures Surgical History Date Name Laterality Status Provider Name and Address Organization Details Recorded Time 04/07/20 22 Most Recent Mammogram completed Renetta Mcclelland [place] - [facility], 01/23/2023 08:29:25 09/25/19 14 Breast Biopsy completed Chanelle Winkler [place] - [facility], 11/24/2014 08:45:03 09/25/18 97 Other completed Chanelle Winkler [place] - [facility], 08/12/2013 08:46:26 09/25/18 91 Tubal Ligation completed Chanelle Winkler [place] - [facility], 08/12/2013 08:46:26 09/25/18 82 Other completed Chanelle Winkler [place] - [facility], 11/24/2014 08:45:03 09/25/18 63 Tonsillectomy completed Chanelle Winkler [place] - [facility], 08/12/2013 08:46:26 Imaging Results Imaging Date Name Status LastModified by Organiz ation Details LastModified Time 12/08/2016 MAMMO, screening, digital, bilateral [facility] [address] [place], [address], 12/09/2016 08:22:51 04/07/2022 MAMMO, screening, digital, bilateral completed [facility] [address], [place], [address], 04/07/2022 10:36:35 04/07/2022 bone density completed [facility] [address], [place], [address], 04/07/2022 14:13:46 Procedure Notes None recorded. Medical Equipment None Reported. Allergies Allergen ID Allergen Name Allergen Category Reaction Reaction Severity Criticality Documentation Date Start Date Code Code System Note Provider Name and Address Organization Details Recorded Time 19747 Linda medicatio n hives Not available Not available 08/12/2013 01716 1 RxNorm Chanelle lazcano [place] - [facility], 3 08:46:26 Medications Name Sig Start Date Stop Date Status Note LastModified by Organization Details LastModified Time cyclobenzap rine 10 mg tablet TAKE 1 TABLET BY MOUTH THREE TIMES A DAY NEEDED FOR MUSCLE SPASMS 03/11 completed Not Available Not Available Not Available amoxicillin 500 mg capsule TAKE 4 CAPSULES BY MOUTH 1 HOUR BEFORE DENTAL PROCEDURE . 03/11 completed Not Available Not Available Not Available meloxicam 15 mg tablet 03/11 completed Not Available Not Available Not Available valsartan 80 mg tablet TAKE 1 TABLET BY MOUTH EVERY DAY active Not Available Not Available No t Available simvastatin 80 mg tablet 01/25 completed Not Available Not Available Not Available sulfamethox azole 800 mg-trimetho prim 160 mg tablet TAKE 1 TABLET BY MOUTH TWO TIMES A DAY FOR 7 DAYS 03/11 completed Not Available Not Available Not Available hydrocodone 10 mg-acetamin ophen 325 mg tablet active Not Available Not Available No t Available liothyronin e 5 mcg tablet TAKE 1 TABLET BY MOUTH EVERY DAY ON AN EMPTY STOMACH. active Not Available Not Available No t Available amoxicillin 500 mg tablet TAKE 1 TABLET BY MOUTH THREE TIMES A DAY UNTIL FINISHED 03/11 completed Not Available Not Available Not Available simvastatin 40 mg tablet TAKE 1 TABLET BY MOUTH EVERY EVENING active Not Available Not Available No t Available pantoprazol e 20 mg tablet,yanira yed release 03/11 completed Not Available Not Available Not Available levothyroxi ne 100 mcg tablet TAKE 1 TABLET BY MOUTH EVERY DAY active Not Available Not Available No t Available oxycodone-a cetaminophe n 5 mg-325 mg tablet active Not Available Not Available No t Available methocarbam ol 750 mg tablet 03/11 completed Not Available Not Available Not Available dexamethaso ne 2 mg tablet TAKE 1 TABLET BY MOUTH EVERY 12 HOURS FOR 5 DAYS 02/03 completed Not Available Not Available Not Available hydrocodone 7.5 mg-acetamin ophen 325 mg tablet active Not Available Not Available No t Available dexamethaso ne 4 mg tablet active Not Available Not Available Not Available lisinopril 10 mg tablet TAKE 1 TABLET BY MOUTH EVERY DAY 03/11 completed Not Available Not Available Not Available gabapentin 300 mg capsule Take 1 capsule twice a day by oral route. active Not Available Not Available No t Available Vitamin D2 1,250 mcg (50,000 unit) capsule active Not Available Not Available Not Available metformin ER 500 mg tablet,exte nded release 24 hr 01/25 completed Not Available Not Available Not Available naproxen 500 mg tablet active Not Available Not Available Not Available oxycodone 5 mg tablet 03/11 completed Not Available Not Available Not Available Estrace 0.01% (0.1 mg/gram) vaginal cream Insert 1 g every day by vaginal route at bedtime. 01/25 completed Not Available Not Available Not Available Vitamin D3 50,000u once a week 01/25 completed Not Available Not Available Not Available MoviPrep 100 gram-7.5 gram-2.691 gram oral powder packet 01/25 completed Not Available Not Available Not Available sodium,pota ssium,mag sulfates 17.5 gram-3.13 gram-1.6 gram oral soln USE DIRECTED TO COMPLETE PREP 02/03 completed Not Available Not Available Not Available Multi Vitamin active Not Available Not Available Not Available Trulicity 1.5 mg/0.5 mL subcutaneou s pen injector INJECT 0.5ML SUBCUTANE OUSLY EVERY WEEK DIRECTED. ROTATE INJECTION SITES active Not Available Not Available No t Available Vitals Date Recorded Body weight Body mass index (BMI) Body height Body temperature Heart rate Systolic blood pressure Diastolic blood pressure Provider Name and Address Organization Details Last Updated DateTime 2 788473. 06 g 42.4 kg/m2 156.21 cm 97.2 [degF] 89 /min 187 mm[Hg] 87 mm[Hg] Renetta Mcclelland [place] - [facility], 2 11:10:25 Date Recorded Body height Provider Name an d Address Organization Details Last Updated DateTime 04/22/2022 156.21 cm Renetta Prater in [facility], 04/22/2022 09:07:41 Date Recorded Body height Body mass index (BMI) Body weight Heart rate Systolic blood pressure Diastolic blood pressure Provider Name and Address Organization Details Last Updated DateTime 3 156.21 cm 39.6 kg/m2 83309.1 7 g 67 /min 141 mm[Hg] 80 mm[Hg] Renetta Mcclelland [place] - [facility], 3 09:36:51 Date Recorded Body height Body mass index (BMI) Body weight Body temperature Heart rate Systolic blood pressure Diastolic blood pressure Provider Name and Address Organization Details Last Updated DateTime 4 156.21 cm 44.1 kg/m2 808155. 11 g 98.5 [degF] 97 /min 150 mm[Hg] 76 mm[Hg] deysi vásquez [place] - [facility], 4 13:57:44 Date Recorded Body height Body mass index (BMI) Heart rate Body weight Systolic blood pressure Diastolic blood pressure Provider Name and Address Organization Details Last Updated DateTime 5 156.21 cm 42.5 kg/m2 109 /min 220931. 606712 g 145 mm[Hg] 79 mm[Hg] Chanelle Peterson [place] - [facility], 5 08:45:04 Social History Question Answer Notes LastModified by Organizat ion Details LastModified Time Tobacco Smoking Status Former Smoker quit over 20 yrs ago Not Available [employer] 07/28/2020 03:19:40 What Is Your Level Of Alcohol Consumption? Occasional [id number] Information not available 07/28/2020 What Is Your Level Of Caffeine Consumption? Moderate [id number] Information not available 07/28/2020 In The 14 Days Before Symptom Onset, Have You Had Close Contact With A Laboratory-confir med COVID-19 While That Case Was Ill? No Information not available 01/25/2022 In The 14 Days Before Symptom Onset, Have You Had Close Contact With A Person Who Is Under Investigation For COVID-19 While That Person Was Ill? No Information not available 01/25/2022 Have You Been To An Area Known To Be High Risk For COVID-19? No Information not available 01/25/2022 Are You Currently Employed? Yes Information not available 01/25/2022 What Type Of Diet Are You Following? REGULAR [id number] Information not available 07/28/2020 Which Illicit Or Recreational Drugs Have You Used? No [id number] Information not available 07/28/2020 Do You Reside In Or Have You Traveled To An Area Where Ebola Virus Transmission Is Active? No [id number] Information not available 07/28/2020 Education 4 Year College [email or web address] [employer] n not available 08/12/2013 What Is The Highest Grade Or Level Of School You Have Completed Or The Highest Degree You Have Received? [id number] Information not available 01/25/2022 Who Is Your Employer? [employer] Information not available 01/25/2022 What Is Your Occupation? Rn [id number] Information not available 07/28/2020 Are There Any Guns Present In Your Home? No Information not available 01/25/2022 Marital Status Informatio n not available 08/12/2013 What Was The Date Of Your Most Recent Tobacco Screening? 03/11/2024 [email or web address] Information not available 03/11/2024 What Is Your Relationship Status? Information not available 01/25/2022 Are You Sexually Active? Yes [id number] Information not available 07/28/2020 How Much Tobacco Do You Smoke? No Quit [id number] Information not available 07/28/2020 General Stress Level Medium Information not available 08/12/2013 Do You Feel Stressed (tense, Restless, Nervous, Or Anxious, Or Unable To Sleep At Night)? [id number] Information not available 01/25/2022 Do You Use Any Illicit Or Recreational Drugs? No Information not available 01/25/2022 Do You Or Have You Ever Used Any Other Forms Of Tobacco Or Nicotine? No Information not available 01/25/2022 Sex: Female Functional Status Question Answer Note LastModified by Organizat ion Details LastModified Time What is your exercise level? Occasional [id number] Information not available 07/28/2020 Mental Status None recorded. Family History Relationship Description Onset Age of this Age Resolved Age Notes LastModified by Organization Details LastModified Time Paternal Grandmother Depressive disorder Not available 10/2014 08:53:14 Unspecified Relation Family history of neoplasm of breast 40 cousin [email or web address] Not available 10/2014 08:53:14 Father Heart disease [email or web address] Not available 10/2014 08:53:14 Medical History Condition Response Anesthesia complications N High Blood Pressure N Kidney or Bladder Problems Y Thyroid Problems Y Depression N Lung Disease N GI Problems N Defects or Inherited Disease N Anemia N History of Ovarian Cancer N History of Breast Cancer N BRCA testing in past N Psychiatric Illness N Anxiety Disorder N Diabetes Y Arthritis N Headaches or Migraines N Infertility N Asthma N Endometriosis N History of Cancer N Hepatitis N Heart Disease N Hypertension N Gynecological History Statement/Question Response If Post Menopausal, Age at Menopause 49 Age at Menarche 9 Most Recent Mammogram 04/07/2022 Age at First Child 28 Obstetrics History GPAL:G 2 P 2 0 0 2 Type Value Full Term 2 Living 2 Total 2 Immunizations Vaccine Type Date Status Note Provider Nam e and Address Organization Details Recorded Time influenza, unspecified formulation 3 completed KARTHIK Boyd in [facility], 08/12/2013 08:46:26 Influenza, split virus, trivalent, preservative 5 completed KARTHIK Boyd in [facility], 11/24/2014 08:45:02 COVID-19, mRNA, LNP-S, PF, 100 mcg/0.5mL dose or 50 mcg/0.25mL dose 1 completed KARTHIK Nielson in [facility], 01/25/2022 11:11:55 Influenza, split virus, quadrivalent, preservative 1 completed AKRTHIK Nielson in [facility], 01/25/2022 11:12:08 Past Encounters Encounter ID Performer Location Encounter Start Date Encounter Closed Date Diagnosis/Indication Diagnosis SNOMED-CT Code Diagnosis ICD10 Code Diagnosis Note [id number] Chanelle FOSTER MD [address] [facility], [place] [address] [place] [address] 08/12/2013 08:20:17 08/12/2013 14:42:55 Postmenopausal bleeding [id number] Chanelle Haddadzywgodwin ANU FOSTER MD [address] [facility],[place] [address] 08/19/2013 15:18:59 08/20/2013 15:56:26 Specialized medical examination 01609241 Screening for malignant neoplasm of rectum 522378194 Screening mammography [id number] Cherise Griffith ANU FOSTER MD [address] [place] [address], [place] [address] 11/24/2014 08:35:44 11/24/2014 15:56:29 Specialized medical examination 67503784 Screening for malignant neoplasm of rectum 791765992 Screening mammography 70392925 [address] res[facility] incontinence 89636925 Atrophic vaginitis [id number] MD ANU Rai MD [address] [place] [address], [place] [address] 01/25/2022 10:38:40 01/26/2022 09:26:12 Specialized medical examination 93452741 Z01.419 Screening for malignant neoplasm of rectum 578038879 Z12.12 Screening mammography 24 407108 Z12.31 Menopausal and postmenopausal disorders 245028405 N95.9 [id number] MD ANU Rai MD [address] [place] [address], [place] [address] 04/22/2022 09:06:36 04/22/2022 09:49:20 Osteopenia 925044237 M85.852 [id number] MD ANU Rai MD [address] [place] [address], [place] [address] 02/03/2023 09:32:48 02/03/2023 10:08:17 Specialized medical examination 23083536 Z01.419 Screening for malignant neoplasm of rectum 586366627 Z12.12 Screening mammography [address] ress incontinence 51204297 N39.3 Osteopenia 528439321 M85 .852 [id number] MD ANU Rai MD [address] [place] [address], [place] [address] 03/11/2024 13:48:41 03/11/2024 15:17:48 Screening mammography 30230710 Z12.31 Screening for osteoporosis 064770221 N95.8 Specialize d medical examination 43549217 Z01.419 Screening for malignant neoplasm of rectum 693821921 Z12.12 Health Concerns Section Related Observation LastModified by Organization Detai ls LastModified Time None Recorded Concern Status LastModified by Organization Details LastModified Time None Recorded Advance Directives Directive None Recorded Payers Encounter Date Sequence Insurance Name Policy Number Policy Del Rosario Covered Member ID Del Rosario Member ID Guarantor Name 11/24/2014 1 [facility] [id number] 23 Cherise Marques [id number] Cherise Marques 01/25/2022 1 [facility] [id number] 23 Cherise Marques [id number] Cherise Marques 04/22/2022 1 [facility] [id number] 23 Cherise Marques [id number] Cherise Marques 02/03/2023 1 [facility] [id number] 23 Cherise Marques [id number] Cherise Marques 03/11/2024 2 [place] [employer] Cherise Marques [id number] Cherise Marques 03/11/2024 1 [facility] [id number] 23 Cherise Marques [id number] Cherise Marques Notes Date Note Type Note Provider Name and Address Organization Details Recorded Time 01/25/2022 text/html She is here for annual exam, has not been here since 2014, she notes she has not had a pap anywhere else. She is getting her annual mammograms, though. 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 Anu Foster MD [address] [facility],[address], [place], [address], [place] [facility], 01/25/2022 12:32:16 04/22/2022 text/html This visit is a phone telehealth visit. The patient consented to the visit by phone. The patient was at [facility] on vacation at the time of the call and the provider and patient were the only people on the line. I was at [address] [place] [address], [place] [address], [place], at the time of the call. Her T score of her femoral neck is -1.5. Note from 02/13: She is here for annual exam, has not been here since 2014, she notes she has not had a pap anywhere else. She is getting her annual mammograms, though.Due for bone density. Anu Foster MD [address] [facility],[address], [place], [address], [employer] [facility], 04/22/2022 09:43:07 02/03/2023 text/html She is here for annual, doing well, no health issues, her type 2 diabetes is better with her new diet. She is here for annual exam, has not been here since 2014, she notes she has not had a pap anywhere else. She is getting her annual mammograms, though.Due for bone density. Anu Foster MD [address] [facility] [address], [place], [address], [place] - [facility], 02/03/2023 10:02:00 03/11/2024 text/html She is here for annual, doing well. Last bone density was 2021. She plans to retire at the end of April. Note from 2022: She is here for annual, doing well, no health issues, her type 2 diabetes is better with her new diet.She is doing better with adequate calcium intake after her bone density last year showed worsening osteopenia. Anu Foster MD [address] [facility],[address], [place], [address], [employer] [facility], 03/11/2024 14:35:00 OBGyn Episode No OBEpisode recorded.
--- OUTSIDE RECORDS SUMMARY | 2024-11-25 12:00 | XMS_ITS | Continuity of Care Document ---
Author Organization [facility] Address [address] [place] [address] Phone Care Team Providers Care Soil Specialist Name Role Phone Charleen Lehman MD Unavailable Unavail able Allergies, Adverse Reactions, Alerts Substance Reaction Status Criticality exenatide Active No Information Medications Medication Instructions Dosage Effective Dates (start - stop) Status Comments levothyroxine 100 mcg capsule take 1 capsule by oral route every day 100 MCG - Active simvastatin 40 mg tablet take 1 tablet by oral route every day in the evening 40 MG - Active liothyronine 5 mcg tablet take 1 tablet by oral route every day 5 MCG - Active valsartan 80 mg tablet take 1 tablet by oral route every day 80 MG - Active Procedures Procedure Date X-ray exam of hand, 3+ views Office/outpatient visit,new, Low 2023 Betamethasone Acetate 4mg & Sodium Phosp hate 3mg Inject tndn sheath/lgmn, Single 024 Advance Directives Directive Yes / No Effective Date File Name No Information Encounters Encounter Description Practice Location Reason(s) For Visit Diagnoses Date Provider Providers Copied on Encounter [facility], [address], [place], [place], [id number], [place] tel:[phone] [place] - [address]-in No Information 4 Radha Villaseñor. [address] [facility], [place], [place], [id number] , [place]. tel:[phone] Referring Provider: Charleen Cantor, [address] [facility] [address], [place], [address] . tel:[phone] Office/outpat ient visit,[facility], [address], [place], [place], [id number], [place] tel:[phone] - Walk-in hand (chief complaint) Right hand painTrigger finger, right middle finger Radha Villaseñor. [address] [facility], [address], [place], [place], [id number] , [place]. tel:[phone] Referring Provider: Charleen Cantor, [address] [facility] [address], [place], [address] . tel:[phone] Family History Family Member Type Diagnosis Age At Onset Problem Family history of Hypertensi on Payers Payer name Insurance type [email or web address] [id number] Social History Type Description Quantity Date Captured Comments Sex Female Smoking Status No Information Chief Complaint And Reason For Visit No Information Reason For Referral Reason For Referral No Information Plan Of Treatment Date Type Action Status Referral Ordered: X-ray exam of hand, 3+ views RT hand ordered Patient Education A Healthy Lifestyle: Ca re Instructions completed History Of Present Illness Encounter Date Complaint History Of Prese nt Illness hand Cherise Marques i s a 64 year old female. Patient presents today with right 3rd finger pain. Patient states she was treated in October for trigger finger. Patient received a steroid injection with relief. Patient states her symptoms started to return about 4-5 weeks ago. Patient has pain and a snapping sensation in her finger. Functional Status Date Functional Assessmen t No Information Instructions Date Instruction Additional Infor artem 1 Avoid painful acti vities. 2 Betamethasone 7 mg stat3 PGHOT discussed 4 RTC in 6 weeks prn5 All questions were answered and Pt voiced understanding Related to Trigger finger, right middle finger Assessments Type Assessment Date No Information Patient Care Teams Name Effective Dates (start - stop) Status Members No Information
[2024-11-25 12:05] LABS: Anion Gap 12 (12-20); Blood Urea Nitrogen 8 mg/dL (9-16); Calcium 9.9 mg/dL (8.4-10.2); Carbon Dioxide 25 mmol/L (22-29); Chloride 106 mmol/L (96-108); Estimated Glomerular Filt Rate > 60; Glucose Random 298 mg/dL (60-115); Potassium 4.1 mmol/L (3.3-5.1); Sodium 139 mmol/L (135-145)
== END ==
LOC: HO.CARD 10:18
PROVIDERS: PCP Internal Medicine Medical Oncology; Visit Provider Internal Medicine Medical Oncology
DX: Z01.818 Encounter for other preprocedural examination (principal); E11.9 Type 2 diabetes mellitus without complications; E66.9 Obesity, unspecified
CPT/HCPCS: 36415; 80048; 83036; 85025; 93005

== ENCOUNTER → 2024-11-25 10:47 | Outpatient (BNV) | payer MEDICARE, SELFPAY | PROVIDERS: PCP Internal Medicine Medical Oncology; Visit Provider Internal Medicine Cardiovascular Disease | DX: R94.31 Abnormal electrocardiogram [ECG] [EKG] (principal) | CPT/HCPCS: 93010 ==

== ENCOUNTER 2025-07-29 07:17 | Day surgery (SDC) | payer MEDICARE, SELFPAY ==
--- OUTSIDE RECORDS SUMMARY | 2024-03-14 06:27 | XMS_ITS ---
Author Organization Mike Marin III, MD Address [address] [place] [address] [place] [address] Care Team Providers Care Face Painter Name Role Phone Dr. Mike Marin III Primary Care Provider REASON FOR VISIT Cancel Appointment Request Social History Sex Assigned At : Social History Observation Description Sex Assigned At Female Encounters Encounter Location Date Provider Diagnosis Mike Marin III, MD [address] [place] [address] [place] [phone] 03/14/2024 Mike Marin Plan Of Treatment Next Appt Details Provider Name:Mike Marin , 07/17/2025 10:15:00 AM, [address] [place] [address] [place], [address], Provider Name:Mike Marin , 01/15/2026 10:00:00 AM, [address] [place] [address] [place], [address], Progress Notes * Cherise ROSSDOB: 8 (63 yo F)Acc No.[id number]:03/14/2024 Patient: Cherise Osman :1960 A ge:63 Y S ex:Female Address:[address] [place] [phone] * true * Date: Generated for Printi ng/Facarolinag/eTransmitting on: 1 11:19 AM EDT
--- OUTSIDE RECORDS SUMMARY | 2024-03-27 07:00 | XMS_ITS ---
Author Organization Mike Marin III, MD Address [address] [place] [address] [place] [address] Care Team Providers Care Swimmer Name Role Phone Dr. Mike Marin III Primary Care Provider Allergies Allergen (clinical drug ingredient) Drug/Non Drug Allergy documented on EMR Reaction Allergy Type Onset Date Status Byetta 10 MCG Pen Unknown Drug Allergy Active REASON FOR VISIT Clearance for right eye cataract surgery on 04/03/[address] Ermias Clarke., Lumbar radiculopathy, Hypothyroid, Diabetes, Arthritis right hip, Obesity, Hypertension Medications Medication SIG (Take, Route, Frequency, Duration) Notes Start Date End Date Status Simvastatin 40 MG TAKE 1 TABLET BY ALVA TH EVERY DAY IN THE EVENING Active Trulicity 1.5mg/0.5ml 0.5 ml once a week Subcutaneous 30 days Subcutaneous once a week Active Lisinopril 10 MG 1 tablet Orally Once a day 06/21/2023 Active Aspirin 81 81 MG 1 tablet Orally Once a day Active Trulicity 1.5 MG/0.5ML as directed Subcu taneous weekly for 28 days 03/27/2024 02/26/2025 Active Trulicity 1.5 MG/0.5ML as directed Subcu taneous weekly 09/01/2023 Active Synthroid 100 MCG as directed Orally O nce a day Active Liothyronine Sodium 5 MCG 1 tablet on an empty stomach Orally Once a day 10/18/2021 Active Trulicity 1.5 MG/0.5ML as directed Subcu taneous weekly 09/01/2023 Active Valsartan 80 MG 1 tablet Orally Once a day 08/25/2023 Active Social History Tobacco Use: Social History Observation Description Date Details (start date - stop date) Former Smoker NA - NA Sex Assigned At : Social History Observation Description Sex Assigned At Female Tobacco Use/Smoking Question Answer Notes Patient is a former smoker How long has it been since you last smoked? > 10 years Additional Findings: Tobacco Non-User Ex-cigaret te smoker Problems Problem Type SNOMED Code ICD Code Onset Dates Problem Status W/U Status Risk Notes Problem [id number] Age-related incipient cataract of right eye (H25.091) Active confirmed She has medical clearance for the procedure. There are no contraindicat ions. The procedure is indicated. The risk is that of a normal healthy woman. Vital Signs Temperature 98.1 degrees Fahrenheit 03/27/20 24 Blood pressure systolic 140 mm Hg 03/27/20 24 Blood pressure diastolic 78 mm Hg 024 Heart Rate 86 /min 03/27/2024 Height 62 in 03/27/2024 Weight 236 lbs 03/27/2024 BMI 43.16 kg/m2 03/27/2024 Encounters Encounter Location Date Provider Diagnosis Mike Marin III, MD [address] [place] [address] [place] [address] 03/27/2024 Mike Marin Hypothyroidism, unspecified E03.9 ; Age-related incipient cataract of right eye H25.091 ; Type 2 diabetes mellitus without complication, without long-term current use of insulin E11.9 ; Obesity (BMI 30-39.9) E66.9 and Former smoker Z87.891 Assessments Encounter Date Diagnosis (ICD Code) Assessment Notes Treatment Notes Treatment Clinical Notes 03/27/2024 Hypothyroidism, unspecified (ICD-10 - E03.9) She has been euthyroid. Thyroid function tests will be ordered prior to her next visit. No change in her regimen was needed today. 03/27/2024 Age-related incipient cataract of right eye (ICD-10 - H25.091) She has medical clearance for the procedure. There are no contraindications. The procedure is indicated. The risk is that of a normal healthy woman. 03/27/2024 Type 2 diabetes mellitus without complication, without long-term current use of insulin (ICD-10 - E11.9) She was continued on her current therapy. We reviewed her weight loss diabetic diet in detail. She has gained 2 pounds. 03/27/2024 Obesity (BMI 30-39.9) (ICD-10 - E66.9) Her body mass index is 32. She has gained 2 pounds. We made a plan to lose weight at a rate of one half of a pound per week through a diet restricted in fat calories and sodium and concentrated sweets. 03/27/2024 Former smoker (ICD-10 - Z87.891) She is highly motivated not to smoke and has a plan for prevention of relapse in times of stress or illness. Plan Of Treatment Medication Medication Name Sig Start Date Stop Date Notes Simvastatin 40 MG TAKE 1 TABLET BY ALVA TH EVERY DAY IN THE EVENING Trulicity 1.5mg/0.5ml 0.5 ml once a week Subcutaneous 30 days Subcutaneous once a week Lisinopril 10 MG 1 tablet Orally Once a day 06/21/2023 Aspirin 81 81 MG 1 tablet Orally Once a day Trulicity 1.5 MG/0.5ML as directed Subcu taneous weekly for 28 days 03/27/2024 02/26/2025 Trulicity 1.5 MG/0.5ML as directed Subcutaneous weekly 04/2023 Synthroid 100 MCG as directed Orally Once a day Liothyronine Sodium 5 MCG 1 tablet on an empty stomach Orally Once a day 10/18/2021 Trulicity 1.5 MG/0.5ML as directed Subcutaneous weekly 04/2023 Valsartan 80 MG 1 tablet Orally Once a day 08/25/2023 Pending Test Test Name Order Date PROFILE, FASTING (COMPREHENSIVE METABOLI C) 03/27/2024 TSH (THYROID STIMULATING HORMONE) 2023 CBC WITH AUTO DIFF 03/27/2024 Lipid Panel 03/27/2024 Free T4 (Free Thyroxine) 03/27/2024 Hemoglobin A1c 03/27/2024 Next Appt Details Follow Up: 3 Months, Reason: OV Provider Name:Mike Marin , 07/17/2025 10:15:00 AM, [address] [place] [address] DR, [facility] [place], [place], [phone], Provider Name:Mike Marin , 01/15/2026 10:00:00 AM, [address] [place] [address] [address] [place], [place], [address], Progress Notes * Cherise ROSSDOB: 8 (63 yo F)Acc No.[id number]:03/27/2024 Patient: Cherise Osman Provider: Priya Marin MD :1960 A ge:63 Y S ex:Female Date:03/27/2024 Address:[address] [place], [place] [id number] Subjective: * Chief Complaints: * C learance for right eye cataract surgery on 04/03/[address] Ermias Clarke.Lumbar radiculopathyHypothyroidDiabetesArthritis right hipObesityHypertension * HPI: C OVID-19 Screening: She comes to the office today for medical clearance for a right eye cataract extraction and lens implantation to be done on April 03, 2024. A careful history was taken today. A careful examination was done. No contraindication to cataract surgery was found. She is given full medical clearance with the average risk of healthy woman her age for the procedure to be done in March 2024. It is understood that the cataract in the left eye is immature and will not be removed at this time. Questions H ave you experienced fever, chills, cough, sore throat, shortness of breath, difficulty breathing, muscle aches, loss of taste or smell? N o H ave you been exposed to the virus within the last 10 days? N o H ave you travelled internationally in the last 10 days? N o H ave you been exposed to COVID-19 in the past? Y es * ROS: G eneral/Constitutional: pain R ight hip, otherwise only normal aches and pains.?Chills d enies. F atigue a dmits. F ever d enies. E NT: Decreased hearing d enies. R espiratory: Cough d enies. C ardiovascular: Chest pain with exertion d enies. D yspnea on exertion?denies. S hortness of breath d enies. G astrointestinal: Constipation o ccasional. D ecreased appetite d enies. D iarrhea d enies. H eartburn d enies. N ausea d enies. R ectal bleeding d enies. V omiting d enies. H ematology: bruising d enies. p etechiae d enies. S wollen glands n one have been noted. G enitourinary: Frequent urination d enies. M usculoskeletal: Muscle aches d enies. P ainful joints d enies. S ciatica d enies. W eakness d enies. S kin: Itching d enies. R nga d enies. S kin lesion(s)?denies. N eurologic: Difficulty speaking d enies. D izziness d enies.?Headache d enies. L ow back pain t hat is chronic. P sychiatric: Depressed mood d enies. * Medical History: * Surgical History: b reast biopsy 2007fracture right wrist lumbosacral spine decompressions procedure 1997tonsillectomy tubal ligation [id number] colonoscopy Right total hip replacement 05/01/2023 * Hospitalization/Major Diagno stic Procedure: D enies Past Hospitalization * Family History: F ather: 78 yrs, coronary artery disease, hypertension, type II diabetes. M other: alive 75 yrs, hypertension, hyperlipidemia. P aternal Grand Father: , stroke. M aternal Grand Mother: , stomach cancer. S pouse: alive. 2 brother(s) , 2 sister(s) - healthy. 2 daughter(s) - healthy. . Her brothers and sisters, and children are healthy and well. * Social History: T obacco Use: T obacco Use/Smoking P atient is a f ormer smoker H ow long has it been since you last smoked??> 10 years A dditional Findings: Tobacco Non-User E x-cigarette smoker S he was born in [place], [place]. She has 2 daughters, Gay and Abby. She has 2 brothers Sudhakar, Jeremiah and 2 sisters Abby and Rohit. * Medications: T akingSimvastatin 40 MG Tablet TAKE 1 TABLET BY MOUTH EVERY DAY IN THE EVENING Liothyronine Sodium 5 MCG Tablet 1 tablet on an empty stomach Orally Once a dayTrulicity 1.5 MG/0.5ML Solution Pen-injector as directed Subcutaneous weeklyTrulicity 1.5 MG/0.5ML Solution Pen-injector as directed Subcutaneous weeklySynthroid 100 MCG Tablet as directed Orally Once a dayValsartan 80 MG Tablet 1 tablet Orally Once a dayAspirin 81 81 MG Tablet Delayed Release 1 tablet Orally Once a dayTrulicity 1.5mg/0.5ml pen 0.5 ml once a week Subcutaneous 30 days Subcutaneous once a weekLisinopril 10 MG Tablet 1 tablet Orally Once a dayMedication List reviewed and reconciled with the patientTaking Simvastatin 40 MG Tablet TAKE 1 TABLET BY MOUTH EVERY DAY IN THE EVENING Taking Liothyronine Sodium 5 MCG Tablet 1 tablet on an empty stomach Orally Once a dayTaking Trulicity 1.5 MG/0.5ML Solution Pen-injector as directed Subcutaneous weeklyTaking Trulicity 1.5 MG/0.5ML Solution Pen-injector as directed Subcutaneous weeklyTaking Synthroid 100 MCG Tablet as directed Orally Once a dayTaking Valsartan 80 MG Tablet 1 tablet Orally Once a dayTaking Aspirin 81 81 MG Tablet Delayed Release 1 tablet Orally Once a dayTaking Trulicity 1.5mg/0.5ml pen 0.5 ml once a week Subcutaneous 30 days Subcutaneous once a weekTaking Lisinopril 10 MG Tablet 1 tablet Orally Once a dayMedication List reviewed and reconciled with the patient * Allergies: B yetta 10 MCG Penno[Allergies Verified] Objective: * Vitals: H t: 62, Wt:236, BMI:43.16, BP:140/78, HR:86, Temp:98.1, Wt-k.05. * P ast Orders: Lab:URINE DIP STICK * Order Date 01/10/2024 10/21/2016 Result: normal SG 1.000 (Ref Range: 1.005 - 1.025) 1.025 pH 5.0 (Ref Range: 5.0 - 9.0) 5 AMY neg (Ref Range: Negative -) neg NIT neg (Ref Range: Negative -) neg PRO neg (Ref Range: Negative - Trace) neg GLU 250 (Ref Range: Negative -) neg KET neg (Ref Range: Negative -) small UBG 0.2 (Ref Range: 0.1 - 1.8) normal THEA neg (Ref Range: 0.2 - 1.3) + BLD neg (Ref Range: Negative -) neg Menstrating no no * Examination: G eneral Examination: GENERAL APPEARANCE: p omayra, well nourished, well developed, in no acute distress, calm and relaxed , obese , woman. HEAD: a traumatic, normocephalic. EYES: e daniella, perrla, anicteric, conjugate. EARS: n ormal. NOSE: s eptum intact. ORAL CAVITY: n ormal, unremarkable. NECK/THYROID: n o jugular venous distention, no carotid bruit, thyroid normal. LYMPH NODES: n o enlarged lymph nodes,spleen normal. SKIN: n o suspicious lesions, anicteric. HEART: n o clicks, gallops, murmurs, or rubs, regular rhythm, S1, S2 normal, no s3, or vascular bruits. LUNGS: g ood air movement. BREASTS: n ot examined. ABDOMEN: b owel sounds normal, no ascites, no organomegaly, no mass , centripital obesity. RECTAL EXAM: n ot examined. MUSCULOSKELETAL: e xtremities unremarkable, no clubbing, cyanosis or edema. PERIPHERAL PULSES: n ormal. NEUROLOGIC: a lert and oriented, cranial nerves 2-12 grossly intact, deep tendon reflexes 2+ symmetrical, motor strength normal upper and lower extremities, sensory exam intact. PSYCH: a lert, oriented. Assessment: * Assessment: 1. H ypothyroidism, unspecified - E03.9 (Primary), She has been euthyroid. Thyroid function tests will be ordered prior to her next visit. No change in her regimen was needed today. 2 . A ge-related incipient cataract of right eye - H25.091, She has medical clearance for the procedure. There are no contraindications. The procedure is indicated. The risk is that of a normal healthy woman. 3 . T ype 2 diabetes mellitus without complication, without long-term current use of insulin - E11.9, She was continued on her current therapy. We reviewed her weight loss diabetic diet in detail. She has gained 2 pounds. 4 . O besity (BMI 30-39.9) - E66.9, Her body mass index is 32. She has gained 2 pounds. We made a plan to lose weight at a rate of one half of a pound per week through a diet restricted in fat calories and sodium and concentrated sweets. 5 . F ormer smoker - Z87.891, She is highly motivated not to smoke and has a plan for prevention of relapse in times of stress or illness. Plan: * Treatment: 2. T ype 2 diabetes mellitus without complication, without long-term current use of insulin L AB: PROFILE, FASTING (COMPREHENSIVE METABOLIC) L AB: TSH (THYROID STIMULATING HORMONE) L AB: CBC WITH AUTO DIFF L AB: Lipid Panel L AB: Free T4 (Free Thyroxine) L AB: Hemoglobin A1c 3. O besity (BMI 30-39.9) L AB: PROFILE, FASTING (COMPREHENSIVE METABOLIC) L AB: TSH (THYROID STIMULATING HORMONE) L AB: CBC WITH AUTO DIFF L AB: Lipid Panel L AB: Free T4 (Free Thyroxine) L AB: Hemoglobin A1c 4. O thers Continue Simvastatin Tablet, 40 MG, TAKE 1 TABLET BY MOUTH EVERY DAY IN THE EVENING; C ontinue Trulicity Solution Pen-injector, 1.5 MG/0.5ML, as directed, Subcutaneous, weekly; C ontinue Trulicity Solution Pen-injector, 1.5 MG/0.5ML, as directed, Subcutaneous, weekly; C ontinue Valsartan Tablet, 80 MG, 1 tablet, Orally, Once a day; C ontinue Aspirin 81 Tablet Delayed Release, 81 MG, 1 tablet, Orally, Once a day. * Procedure Codes: * Preventive Medicine: Counseling: C are goal follow-up plan: Counseling for abnormal BMI given Y es Above Normal BMI Follow-up D ietary management education, guidance, and counseling, Dietary needs education, Exercise promotion: strength training, Exercise promotion: stretching, Feeding regime, Giving encouragement to exercise, Lifestyle education regarding diet, Nutrition / feeding management, Nutrition therapy, Prescribed activity/exercise education, Prescribed diet education, Prescribed dietary intake, Special diet education, Weight monitoring , Intervention, Order not done: Medical or Other reason not done S moking/Tobacco Use Patient counseled on the dangers of tobacco use and urged to quit. 0 03/27/2024 DM Care Plan: P atient Lifestyle Goals P atient wants to be able to manage diabetes without too much effort. T reatment Goals H bA1C < 7.0, Blood Sugars less than < 115. B arriers n o barriers. S elf-Managment Goals W ork on weight loss, with a goal of losing 1 lb per week. * Follow Up: 3 Months (Reason: OV) * Images: * Sign off status: Completed true * Provider: Priya Marin MD Date: 0 03/27/2024 Generated for Printi ng/Facarolinag/eTransmitting on: 11:18 AM EDT History and Physical Notes * HPI (History of Present Illness) Category Sub-Category Detail Notes COVID-19 Screening Questions Have you had any new onset fever, chills, cough, congestion, sore throat, shortness of breath, muscle aches?: No Have you been exposed to the virus withi n the last 10 days?: No Have you travelled internationally in [facility] last 10 days?: No Have you been exposed to COVID-19 in the past?: Yes Examination Category Sub-Category Detail Notes General Examination GENERAL APPEARANCE: pleasant , well nourished, well developed, in no acute distress, calm and relaxed , obese , woman HEAD: atraumatic, normocep halic EYES: eomi, perrla, anicte deidra, conjugate EARS: normal NOSE: septum intact NECK/THYROID: no jugular venous di stention, no carotid bruit, thyroid normal HEART: no clicks, gallops, murmurs, or rubs, regular rhythm, S1, S2 normal, no s3, or vascular bruits LUNGS: good air movement ABDOMEN: bowel sounds normal, no ascites, no organomegaly, no mass , centripital obesity NEUROLOGIC: alert and oriented, cranial nerves 2-12 grossly intact, deep tendon reflexes 2+ symmetrical, motor strength normal upper and lower extremities, sensory exam intact SKIN: no suspicious lesion s, anicteric PERIPHERAL PULSES: normal BREASTS: not examined MUSCULOSKELETAL: extremities unremark able, no clubbing, cyanosis or edema LYMPH NODES: no enlarged lymph no rick,spleen normal RECTAL EXAM: not examined PSYCH: alert, oriented ORAL CAVITY: normal, unremarkable
--- OUTSIDE RECORDS SUMMARY | 2024-04-10 13:00 | XMS_ITS ---
Author Organization Mike Marin III, MD Address [address] [place] [address] [place] [address] Care Team Providers Care Type Disk Quality Control Supervisor Name Role Phone Dr. Mike Marin III Primary Care Provider [phone] REASON FOR VISIT Follow up Social History Sex Assigned At : Social History Observation Description Sex Assigned At Female Encounters Encounter Location Date Provider Diagnosis Mike Marin III, MD [address] [place] [address] [place] [address] 04/10/2024 Mike Marin Plan Of Treatment Next Appt Details Provider Name:Mike Marin , 07/17/2025 10:15:00 AM, [address] [place] [address] [place], [phone], Provider Name:Mike Marin , 01/15/2026 10:00:00 AM, [address] [place] [address] [place], [phone], Progress Notes * Cherise ROSSDOB: (65 yo F)Acc No.[id number]:04/10/2024 Progress Notes Patient: Cherise WEI Provider: Priya Marin MD :1960 A ge:63 Y S ex:Female Date:04/10/2024 Address:[address] [place] [id number] Subjective: * Chief Complaints: * 1 . Follow up. * Medical History: Objective: * Vitals: Assessment: Plan: * Treatment: * Images: * The named appointment provid er may or may not be the originator of this progress note, and it is not deemed complete until electronically signed by the appointment provider. Sign off status: Pending * Provider: Priya Marin MD Date: 0 04/10/2024 Generated for Chadd luna/Jose/Antonioitting on: 11:18 AM EDT
--- OUTSIDE RECORDS SUMMARY | 2024-06-27 05:00 | XMS_ITS ---
Author Organization Mike Marin III, MD Address [address] [place] [address] Care Team Providers Care Travel Guide Name Role Phone Dr. Mike Marin III Primary Care Provider Allergies Allergen (clinical drug ingredient) Drug/Non Drug Allergy documented on EMR Reaction Allergy Type Onset Date Status Byetta 10 MCG Pen Unknown Drug Allergy Active REASON FOR VISIT Morbid obesity, Diabetes mellitus, Chronic low back pain, Hypothyroid, Right hip replacement, Hypertension Medications Medication SIG (Take, Route, Frequency, Duration) Notes Start Date End Date Status Trulicity 1.5 MG/0.5ML as directed Subcu taneous weekly for 90 days 09/01/2023 06/22/2025 Active Liothyronine Sodium 5 MCG 1 tablet on an empty stomach Orally Once a day for 90 days 10/18/2021 Active Simvastatin 40 MG 1 tablet in the even ing Orally Once a day for 90 days Active Valsartan 80 MG 1 tablet Orally Once a day for 90 days 08/25/2023 Active Synthroid 100 MCG as directed Orally O nce a day for 90 days Active Trulicity 1.5 MG/0.5ML as directed Subcu taneous weekly 03/27/2024 Active Omeprazole 20 MG 1 capsule 30 minutes before morning meal Orally Once a day Active Social History Tobacco Use: Social History Observation Description Date Details (start date - stop date) Former Smoker NA - NA Sex Assigned At : Social History Observation Description Sex Assigned At Female Tobacco Use/Smoking Question Answer Notes Patient is a former smoker How long has it been since you last smoked? > 10 years Additional Findings: Tobacco Non-User Ex-cigaret te smoker Vital Signs Temperature 97.5 degrees Fahrenheit 06/27/20 24 Blood pressure systolic 134 mm Hg 06/27/20 24 Blood pressure diastolic 83 mm Hg 024 Heart Rate 91 /min 06/27/2024 Height 62 in 06/27/2024 Weight 237 lbs 06/27/2024 BMI 43.34 kg/m2 06/27/2024 Encounters Encounter Location Date Provider Diagnosis Mike Marin III, MD [address] [place] [address] [place] [address] 06/27/2024 Mike Marin Hypothyroidism, unspecified E03.9 ; Type 2 diabetes mellitus without complication, without long-term current use of insulin E11.9 ; Obesity (BMI 30-39.9) E66.9 ; Other intervertebral disc degeneration, lumbosacral region M51.37 ; Other benign mammary dysplasias of unspecified breast N60.89 ; Primary osteoarthritis of right hip M16.11 and Former smoker Z87.891 Assessments Encounter Date Diagnosis (ICD Code) Assessment Notes Treat ment Notes Treatment Clinical Notes 06/27/2024 Hypothyroidism, unspecified (ICD-10 - E03.9) Her thyroid function tests are in the normal range and no change in her medication dosage is needed. 06/27/2024 Type 2 diabetes mellitus without complication, without long-term current use of insulin (ICD-10 - E11.9) We have discussed her hemoglobin A1c at length. We have discussed her weight loss strategy. We have discussed the use of injected semaglutide. She is going to continue her efforts at lifestyle modification to lose weight. No change in her medications was made. 06/27/2024 Obesity (BMI 30-39.9 ) (ICD-10 - E66.9) Her weight is stable in the morbidly obese range. We discussed this at length today. She declined the use of semaglutide. 06/27/2024 Other intervertebral disc degeneration, lumbosacral region (ICD-10 - M51.37) The pain in her spine has been absent lately and she is completing all of the activities of daily living without difficulty. 06/27/2024 Other benign mammary dysplasias of unspecified breast (ICD-10 - N60.89) She conducts breast self-examination and no findings are evident. She will continue to have annual mammograms. 06/27/2024 Primary osteoarthritis of right hip (ICD-10 - M16.11) She has no pain in her right hip with ambulation at this time after arthroplasty.. 06/27/2024 Former smoker (ICD-1 0 - Z87.891) She is highly motivated not to smoke and has a plan for prevention of relapse in times of stress or illness. Plan Of Treatment Medication Medication Name Sig Start Date Stop Date Notes Trulicity 1.5 MG/0.5ML as directed Subcu taneous weekly for 90 days 09/01/2023 06/22/2025 Liothyronine Sodium 5 MCG 1 tablet on an empty stomach Orally Once a day for 90 days 10/18/2021 Simvastatin 40 MG 1 tablet in the even ing Orally Once a day for 90 days Valsartan 80 MG 1 tablet Orally Once a day for 90 days 08/25/2023 Synthroid 100 MCG as directed Orally O nce a day for 90 days Trulicity 1.5 MG/0.5ML as directed Subcutaneous weekly 11/2023 Omeprazole 20 MG 1 capsule 30 minutes before morning meal Orally Once a day Pending Test Test Name Order Date PROFILE, FASTING (COMPREHENSIVE METABOLI C) 06/27/2024 TSH (THYROID STIMULATING HORMONE) 2023 CBC WITH AUTO DIFF 06/27/2024 Lipid Panel 06/27/2024 Free T4 (Free Thyroxine) 06/27/2024 Hemoglobin A1c 06/27/2024 Next Appt Details Follow Up: As Scheduled, Barbara son: OV, Annual Exam Provider Name:Mike Marin , 07/17/2025 10:15:00 AM, [address] [facility] [address], [place], [phone], Provider Name:Mike Marin , 01/15/2026 10:00:00 AM, [address] [facility] [address], [place], [address], Progress Notes * Kira ROSS: 8 (64 yo F)Acc No.[id number]:06/27/2024 Progress Notes Patient: Cherise WEI Provider: Priya Marin MD :1960 A ge:64 Y S ex:Female Date:06/27/2024 Address:[address] [place], [place] [id number] Subjective: * Chief Complaints: * M orbid obesityDiabetes mellitusChronic low back painHypothyroidRight hip replacementHypertension * HPI: C OVID-19 Screening: S he returns for medical management. 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 She and her will be spending 6 months of the year in [place]. She will leave in the coming July and return in December of 2024. Her prescriptions will be transferred to [facility] in [place]. She will continue on Trilisate. She declined an offer Ozempic her weight has been stable. She has no new concerns. Blood work done June 26, 2024 showed white count 7.5, hematocrit 43.9 platelets 225, glucose 190, BUN 15, creatinine 0.61, total cholesterol 174, triglycerides 198, HDL 44 LDL 96 A1c 7.9. Questions H ave you experienced fever, chills, [...] Y es * ROS: G eneral/Constitutional: pain o nly normal aches and pains. C hills d enies.?Fatigue a dmits. F ever d enies. E NT: Decreased hearing d enies. R espiratory: Cough d enies. C ardiovascular: Chest pain with exertion d enies. D yspnea on exertion?denies. S hortness of breath d enies. G astrointestinal: Constipation o ccasional. D ecreased appetite d enies. D iarrhea d enies. H eartburn o ccasional. N ausea d enies. R ectal bleeding d enies. V omiting d enies. H ematology: bruising d enies. p etechiae d enies. S wollen glands n one have been noted. G enitourinary: Frequent urination a t night. M usculoskeletal: Muscle aches d enies. P ainful joints d enies. S ciatica d enies. W eakness d enies. S kin: Itching d enies. R nga d enies. S kin lesion(s)?denies. N eurologic: Difficulty speaking d enies. D izziness d enies.?Headache d enies. L ow back pain d enies. P sychiatric: Depressed mood d enies. * Medical History: * Surgical History: b reast biopsy 2007fracture right wrist lumbosacral spine decompressions procedure 1997tonsillectomy tubal ligation [id number] colonoscopy Right total hip replacement 05/01/2023 * [...] x-cigarette smoker S he was born in [place], [place]. She has 2 daughters, Gay and Abby. She has 2 brothers Jeremiah De La Fuente and 2 sisters Abby and Rohit. * Medications: T akingOmeprazole 20 MG Capsule Delayed Release 1 capsule 30 minutes before morning meal Orally Once a day Simvastatin 40 MG Tablet TAKE 1 TABLET BY MOUTH EVERY DAY IN THE EVENING Liothyronine Sodium 5 MCG Tablet 1 tablet on an empty stomach Orally Once a day Synthroid 100 MCG Tablet as directed Orally Once a day Valsartan 80 MG Tablet 1 tablet Orally Once a day Trulicity 1.5 MG/0.5ML Solution Pen-injector as directed Subcutaneous weekly , stop date 02/26/2025Taking Omeprazole 20 MG Capsule Delayed Release 1 capsule 30 minutes before morning meal Orally Once a day Taking Simvastatin 40 MG Tablet TAKE 1 TABLET BY MOUTH EVERY DAY IN THE EVENING Taking Liothyronine Sodium 5 MCG Tablet 1 tablet on an empty stomach Orally Once a day Taking Synthroid 100 MCG Tablet as directed Orally Once a day Taking Valsartan 80 MG Tablet 1 tablet Orally Once a day Taking Trulicity 1.5 MG/0.5ML Solution Pen-injector as directed Subcutaneous weekly , stop date 02/26/2025DiscontinuedAspirin 81 81 MG Tablet Delayed Release 1 tablet Orally Once a day Lisinopril 10 MG Tablet 1 tablet Orally Once a day Trulicity 1.5 MG/0.5ML Solution Pen-injector as directed Subcutaneous weekly Trulicity 1.5 MG/0.5ML Solution Pen-injector as directed Subcutaneous weekly Trulicity 1.5mg/0.5ml pen 0.5 ml once a week Subcutaneous 30 days Subcutaneous once a week Medication List reviewed and reconciled with the patientDiscontinued Aspirin 81 81 MG Tablet Delayed Release 1 tablet Orally Once a day Discontinued Lisinopril 10 MG Tablet 1 tablet Orally Once a day Discontinued Trulicity 1.5 MG/0.5ML Solution Pen-injector as directed Subcutaneous weekly Discontinued Trulicity 1.5 MG/0.5ML Solution Pen-injector as directed Subcutaneous weekly Discontinued Trulicity 1.5mg/0.5ml pen 0.5 ml once a week Subcutaneous 30 days Subcutaneous once a week Medication List reviewed and reconciled with the patient * Allergies: B yetta 10 MCG Penno[Allergies Verified] Objective: * Vitals: H t: 62, Wt:237, BMI:43.34, BP:134/83, HR:91, Temp:97.5, Wt-k.5. * Examination: G eneral Examination: GENERAL APPEARANCE: p leasant, well nourished, well developed, in no acute distress, calm and relaxed, morbidly obese, woman. HEAD: a traumatic, normocephalic. EYES: e [...] normal, no s3, or vascular bruits. LUNGS: c lear to auscultation . BREASTS: n ot examined. ABDOMEN: b owel sounds normal, no ascites, no organomegaly, no mass, morbid obesity. RECTAL EXAM: n ot examined. MUSCULOSKELETAL: e xtremities unremarkable, no clubbing, cyanosis or edema,Surgical scar right hip. PERIPHERAL PULSES: n ormal. NEUROLOGIC: a lert and oriented, cranial nerves 2-12 grossly intact, deep tendon reflexes 2+ symmetrical, motor strength normal upper and lower extremities, sensory exam intact. PSYCH: a lert, oriented, thought process logical, goal directed, speech clear, good eye contact, cooperative with exam, cognitive function intact. ? Assessment: * Assessment: 1. T ype 2 diabetes mellitus without complication, without long-term current use of insulin - E11.9 (Primary) N otes :We have discussed her hemoglobin A1c at length. We have discussed her weight loss strategy. We have discussed the use of injected semaglutide. She is going to continue her efforts at lifestyle modification to lose weight. No change in her medications was made. 2 . H ypothyroidism, unspecified - E03.9 N otes :Her thyroid function tests are in the normal range and no change in her medication dosage is needed. 3 . O besity (BMI 30-39.9) - E66.9 N otes :Her weight is stable in the morbidly obese range. We discussed this at length today. She declined the use of semaglutide. 4 . O ther intervertebral disc degeneration, lumbosacral region - M51.37 ? N otes :The pain in her spine has been absent lately and she is completing all of the activities of daily living without difficulty. 5 . O ther benign mammary dysplasias of unspecified breast - N60.89 N otes :She conducts breast self-examination and no findings are evident. She will continue to have annual mammograms. 6 . P rimary osteoarthritis of right hip - M16.11 N otes :She has no pain in her right hip with ambulation at this time after arthroplasty.. 7 . F ormer smoker - Z87.891 N otes :She is highly motivated not to smoke and has a plan for prevention of relapse in times of stress or illness. Plan: * Treatment: 2. H ypothyroidism, unspecified Continue Liothyronine Sodium Tablet, 5 MCG, 1 tablet on an empty stomach, Orally, Once a day, 90 days, 90 Tablet, Refills 3; C ontinue Synthroid Tablet, 100 MCG, as directed, Orally, Once a day, 90 days, 90, Refills 3; C ontinue Omeprazole Capsule Delayed Release, 20 MG, 1 capsule 30 minutes before morning meal, Orally, Once a day; C ontinue Trulicity Solution Pen-injector, 1.5 MG/0.5ML, as directed, Subcutaneous, weekly. L AB: PROFILE, FASTING (COMPREHENSIVE METABOLIC) L [...] O thers Continue Simvastatin Tablet, 40 MG, 1 tablet in the evening, Orally, Once a day, 90 days, 90 Tablet, Refills 3; C ontinue Trulicity Solution Pen-injector, 1.5 MG/0.5ML, as directed, Subcutaneous, weekly, 90 days, 12, Refills 3; C ontinue Valsartan Tablet, 80 MG, 1 tablet, Orally, Once a day, 90 days, 90 Tablet, Refills 3. * Procedure Codes: * Preventive Medicine: Counseling: [...] of tobacco use and urged to quit. 1 DM Care Plan: P atient Lifestyle Goals P atient wants to be able to manage diabetes without too much effort. T reatment Goals H bA1C < 7.0, Blood Sugars less than < 115. B arriers n o barriers. S elf-Managment Goals W ork on weight loss, with a goal of losing 1 lb per week. * Follow Up: A s Scheduled (Reason: OV, Annual Exam) * Images: * Sign off status: Completed true * Provider: Priya Marin MD Date: Generated for Chadd luna/Jose/eTransmitting on: 11:18 AM EDT History and Physical Notes * HPI (History of Present Illness) Category Sub-Category Detail Notes COVID-19 Screening Questions Have you had any new onset fever, chills, cough, congestion, sore throat, shortness of breath, muscle aches?: No Have you been exposed to the virus withi n the last 10 days?: No Have you travelled internationally in last 10 days?: No Have you been exposed to COVID-19 in the past?: Yes Examination Category Sub-Category Detail Notes General Examination GENERAL APPEARANCE: pleasant , well nourished, well developed, in no acute distress, calm and relaxed, morbidly obese, woman HEAD: atraumatic, normocep halic EYES: eomi, perrla, anicte deidra, conjugate EARS: normal NOSE: septum intact NECK/THYROID: no jugular venous di stention, no carotid bruit, thyroid normal HEART: no clicks, gallops, murmurs, or rubs, regular rhythm, S1, S2 normal, no s3, or vascular bruits LUNGS: clear to auscultatio n ABDOMEN: bowel sounds normal, no ascites, no organomegaly, no mass, morbid obesity NEUROLOGIC: alert and oriented, cranial nerves 2-12 grossly intact, deep tendon reflexes 2+ symmetrical, motor strength normal upper and lower extremities, sensory exam intact SKIN: no suspicious lesion s, anicteric PERIPHERAL PULSES: normal BREASTS: not examined MUSCULOSKELETAL: extremities unremark able, no clubbing, cyanosis or edema,Surgical scar right hip LYMPH NODES: no enlarged lymph no rick,spleen normal RECTAL EXAM: not examined PSYCH: alert, oriented, tho ught process logical, goal directed, speech clear, good eye contact, cooperative with exam, cognitive function intact ORAL CAVITY: normal, unremarkable
--- OUTSIDE RECORDS SUMMARY | 2024-11-22 05:58 | XMS_ITS ---
Author Organization Mike Marin III, MD Address [address] [place] [address] [place] [address] Care Team Providers Care Catering Cook Name Role Phone Dr. Mike Marin III Primary Care Provider [phone] Results Component Value Reference Range Notes Basic Metabolic Panel Reviewed date:11/25/2024 03:03:48 PM Interpretation: Performing Lab:[facility], [address] [place] [id number] Notes/Report: Sodium 139 135-145 mmol/L Potassium 4.1 3.3-5.1 mmol/L Chloride 106 96-108 mmol/L Carbon Dioxide 25 22-29 mmol/L Anion Gap 12 12-20 Blood Urea Nitrogen 8 9-16 mg/dL Creatinine 0.76 0.5-1.4 mg/dL Estimated Glomerular Filt Rate > 60 Chronic Kidney Disease: Estimated GFR < 60 mL/min/1.73m2 Severe Kidney Disease: Estimated GFR < 15 mL/min/1.73m2 Glucose Random 298 60-115 mg/dL Calcium 9.9 8.4-10.2 mg/dL Hemoglobin A1c Reviewed date:11/25/2024 03:03:48 PM Interpretation: Performing Lab:[facility], [address] [place] [id number] Notes/Report: Hemoglobin A1c % 7.2 <6.0 % Hemoglobin A1C Reference Range Adults: 4.8 - 6.0 % Non diabetic: < 6.0 % Goal: < 7.0 % Additional Action Suggested: > 8.0 % Note: Hemoglobin A1c results are invalid for patients with abnormal amounts of HbF. Blood transfusions may impact the HbA1c concentration in the patient sample. Estimated Average Glucose 160 eAG = Estimated average glucose which is %A1C expressed as average glucose, using the formula of the [id number] Average Glucose study (ADAG), Diabetes Care, Vol.31,#8, 2007 REASON FOR VISIT Pre Op Appt Social History Sex Assigned At : Social History Observation Description Sex Assigned At Female Encounters Encounter Location Date Provider Diagnosis Mike Marin III, MD [address] [place] [address] [place] [phone] 11/22/2024 Mike Marin Preoperative clearan ce Z01.818 ; Type 2 diabetes mellitus without complication, without long-term current use of insulin E11.9 and Obesity (BMI 30-39.9) E66.9 Assessments Encounter Date Diagnosis (ICD Code) Assessment Notes Treat ment Notes Treatment Clinical Notes 11/22/2024 Preoperative clearance (ICD-10 - Z01.818) 11/22/2024 Type 2 diabetes mellitus without complication, without long-term current use of insulin (ICD-10 - E11.9) 11/22/2024 Obesity (BMI 30-39.9) (ICD-10 - E66.9) Plan Of Treatment Pending Test Test Name Order Date CBC WITH AUTO DIFF 11/22/2024 ECG 12 lead EKG 11/22/2024 Next Appt Details Provider Name:Mike Marin , 07/17/2025 10:15:00 AM, [address] [place] [address] [place], [phone], Provider Name:Mike Marin , 01/15/2026 10:00:00 AM, [address] [place] [address] [place] [address], [place], [phone], Progress Notes * Cherise ROSSDOB: 8 (64 yo F)Acc No.[id number]:11/22/2024 Patient: Cherise WEI :1960 A ge:64 Y S ex:Female Address:[address] [place] [id number] Subjective: * Chief Complaints: * P re Op Appt * Medical History: * Surgical History: * Hospitalization/Major Diagno stic Procedure: * Medications: Objective: * Vitals: * Physical Examination: Assessment: * Assessment: 1. P reoperative clearance - Z01.818 2 . T ype 2 diabetes mellitus without complication, without long-term current use of insulin - E11.9 3 . O besity (BMI 30-39.9) - E66.9 Plan: * Treatment: Value Reference Range H emoglobin A1c % 7.2 H <6.0 - % * E stimated Average Glucose 160 - mg/dL ?Imaging: ECG 12 lead EKG2.?Type 2 diabetes mellitus without complication, without long-term current use of insulin?LAB: CBC WITH AUTO DIFF ?LAB: Basic Metabolic Panel ?LAB: Hemoglobin A1c (Collection Date & Time - 11/25/2024 10:39 AM)* Value Reference Range H emoglobin A1c % 7.2 H <6.0 - % * E stimated Average Glucose 160 - mg/dL 3.?Obesity (BMI 30-39.9)?LAB: CBC WITH AUTO DIFF ?LAB: Basic Metabolic Panel ?LAB: Hemoglobin A1c (Collection Date & Time - 11/25/2024 10:39 AM)* Value Reference Range H emoglobin A1c % 7.2 H <6.0 - % * E stimated Average Glucose 160 - mg/dL * Procedure Codes: * true * Date: Generated for Chadd luna/Jose/eTransmitting on: 1 11:18 AM EDT
--- OUTSIDE RECORDS SUMMARY | 2024-11-29 09:00 | XMS_ITS ---
Author Organization Mike Marin III, MD Address [address] [place] [address] [place] [address] Care Team Providers Care Manager Access Name Role Phone Dr. Mike Marin III Primary Care Provider Allergies Allergen (clinical drug ingredient) Drug/Non Drug Allergy documented on EMR Reaction Allergy Type Onset Date Status Byetta 10 MCG Pen Unknown Drug Allergy Active REASON FOR VISIT Pre-Op Clearance for a Left total hip replacement on 12/09/[address] Gonzales Wong, [facility], Osteoarthritis left hip, Degenerative disc disease, Hypothyroidism, Diabetes, Hypertension, Lumbar radiculopathy Medications Medication SIG (Take, Route, Frequency, Duration) Notes Start Date End Date Status Liothyronine Sodium 5 MCG 1 tablet on an empty stomach Orally Once a day 10/18/2021 Active Simvastatin 40 MG 1 tablet in the even ing Orally Once a day Active Valsartan 80 MG 1 tablet Orally Once a day 023 Active Synthroid 100 MCG as directed Orally O nce a day Active Trulicity 1.5 MG/0.5ML as [...] Problem Status W/U Status Risk Notes Problem [id number] Primary osteoarthritis of left hip (M16.12) Active confirmed She is medicall y cleared for surgery to replace the left hip. The benefit is regular risk is small. I found no contraindication to surgery today. She seems healthy and well. Vital Signs Temperature 96.6 degrees Fahrenheit 11/30/19 25 Blood pressure systolic 134 mm Hg 11/30/19 25 Blood pressure diastolic 82 mm Hg 025 Heart Rate 95 /min 11/29/2024 Height 62 in 11/29/2024 Weight 233 lbs 11/29/2024 BMI 42.61 kg/m2 11/29/2024 Encounters Encounter Location Date Provider Diagnosis Mike Marin III, MD [address] [place] [address] [place] [address] 11/29/2024 Mike Marin Hypothyroidism, unspecified E03.9 ; Primary osteoarthritis of left hip M16.12 ; Other intervertebral disc degeneration, lumbosacral region M51.37 ; Graves disease E05.00 ; Primary osteoarthritis of right hip M16.11 ; Lumbosacral radiculopathy due to degenerative joint disease of spine M47.27 ; Age-related incipient cataract of right eye H25.091 ; Essential hypertension I10 and Former smoker Z87.891 Assessments Encounter Date Diagnosis (ICD Code) Assessment Notes T reatment Notes Treatment Clinical Notes 11/29/2024 Hypothyroidism, unspecified (ICD-10 - E03.9) Her thyroid function tests are in the normal range and no change in her medication dosage is needed. 11/29/2024 Primary osteoarthritis of left hip (ICD-10 - M16.12) She is medically cleared for surgery to replace the left hip. The benefit is regular risk is small. I found no contraindication to surgery today. She seems healthy and well. 11/29/2024 Other intervertebral disc degeneration, lumbosacral region (ICD-10 - M51.37) The pain in her spine has been absent lately and she is completing all of the activities of daily living without difficulty. 11/29/2024 Graves disease (ICD-10 - E05.00) She was continued on current medications without change. 11/29/2024 Primary osteoarthritis of right hip (ICD-10 - M16.11) She has no pain in her right hip with ambulation at this time after arthroplasty.. 11/29/2024 Lumbosacral radiculopathy due to degenerative joint disease of spine (ICD-10 - M47.27) She had surgery in the with relief of pain. She has occasional achess and pains and llumbar spine with exertion. 11/29/2024 Age-related incipient cataract of right eye (ICD-10 - H25.091) She has medical clearance for the procedure. There are no contraindications. The procedure is indicated. The risk is that of a normal healthy woman. 11/29/2024 Essential hypertension (ICD-10 - I10) Her blood pressure was stable today and no change in her medications was necessary. 11/29/2024 Former smoker (ICD-10 - Z87.891) She is highly motivated not to smoke and has a plan for prevention of relapse in times of stress or illness. Plan Of Treatment Medication Medication Name Sig Start Date Stop Date Notes Liothyronine Sodium 5 MCG 1 tablet on an empty stomach Orally Once a day 10/18/2021 Simvastatin 40 MG 1 tablet in the even ing Orally Once a day Valsartan 80 MG 1 tablet Orally Once a day 08/25/2023 Synthroid 100 MCG as directed Orally Once a day Trulicity 1.5 MG/0.5ML as directed Subcutaneous weekly 11/2023 Omeprazole 20 MG 1 capsule 30 minutes before morning meal Orally Once a day Next Appt Details Follow Up: As Scheduled, End december, Reason: Annual Exam, Post-surgery check-up Provider Name:Mike Marin , 07/17/2025 10:15:00 AM, [address] [place] [address] [address], [place], [address], Provider Name:Mike Marin , 01/15/2026 10:00:00 AM, [address] [place] [address] [address], [place], [address], Progress Notes * Cherise ROSSDOB: [birth year] (64 yo F)Acc No.[id number]:11/29/2024 Patient: Cherise WEI Provider: Priya Marin MD :1960 A ge:64 Y S ex:Female Date:11/29/2024 Address:[address] [place], [place] [id number] Subjective: * Chief Complaints: * P re-Op Clearance for a Left total hip replacement on 12[facility]09/[address] [facility]ste[facility] left hipDegenerative disc diseaseHypothyroidismDiabetesHypertensionLumbar radiculopathy * HPI: C OVID-19 Screening: Questions H ave you had any new onset fever, chills, cough, congestion, sore throat, shortness of breath, muscle aches? N o * : The patient, a 64-year-old female, has been experiencing issues with her hips. She has already had her right hip fixed and reports that it is doing well. She is scheduled to have her left hip fixed on . She reports that she was able to walk in the hallway the afternoon of her previous surgery and did not experience any pain in the hip area. She is currently off Trulicity pre- operation but is taking all her other medications. She has had blood tests done recently on November 25. She reports feeling anxious to get her hip surgery done but denies any chest pain, shortness of breath, or bleeding. Her glucose level was 298, which she attributes to not fasting. Her GFR is over 60, indicating normal kidney function. She has a history of heart disease in her family, with her father having had several MIs. She also reports a history of respiratory illnesses and diabetes in her family. Blood Sugar Level is 298. We have taken steps to correct the blood sugar. I have carefully examined this patient today and taken her history. I find no contraindications to arthroplasty of the left hip joint in the near future. She is given medical clearance. * ROS: G eneral/Constitutional: pain H ips and knees. C hills d enies. F atigue?admits. F ever d enies. E NT: Decreased hearing d enies. R espiratory: Denies C hest pain. C ough d enies. ? C ardiovascular: Chest pain with exertion d enies. D yspnea on exertion?denies. D enies S hortness of breath, d enies. G astrointestinal: Constipation o ccasional. [...] Muscle aches d enies. P ainful joints N michael, low back, hips and knees. S ciatica d enies. W eakness d enies. S kin: Itching d enies. R nga d enies. S kin lesion(s)?denies. N eurologic: Difficulty speaking d enies. D izziness d enies.?Headache d enies. L ow back pain d enies. P sychiatric: Depressed mood d enies. * Medical History: * Surgical History: b reast biopsy 2007fracture right wrist lumbosacral spine decompressions procedure 1997tonsillectomy tubal ligation [id number] colonoscopy Right total hip replacement 05/01/2023Right hip surgery * Hospitalization/Major Diagno stic Procedure: D enies [...] sisters, and children are healthy and well. Heart disease (father) Respiratory illnesses (mother) Diabetes. * Social History: T obacco Use: T obacco Use/Smoking P atient is a f ormer smoker H ow long has it been since you last smoked??> 10 years A dditional Findings: Tobacco Non-User E x-cigarette smoker S he was born in [place], [place]. She has 2 daughters, Gay and Abby. She has 2 brothers Jeremiah De La Fuente and 2 sisters Abby and Rohit. * Medications: T akingSimvastatin 40 MG Tablet 1 tablet in the evening Orally Once a day Liothyronine Sodium 5 MCG Tablet 1 tablet on an empty stomach Orally Once a day Synthroid 100 MCG Tablet as directed Orally Once a day Valsartan 80 MG Tablet 1 tablet Orally Once a day Omeprazole 20 MG Capsule Delayed Release 1 capsule 30 minutes before morning meal Orally Once a day Trulicity 1.5 MG/0.5ML Solution Pen-injector as directed Subcutaneous weekly Taking Simvastatin 40 MG Tablet 1 tablet in the evening Orally Once a day Taking Liothyronine Sodium 5 MCG Tablet 1 tablet on an empty stomach Orally Once a day Taking Synthroid 100 MCG Tablet as directed Orally Once a day Taking Valsartan 80 MG Tablet 1 tablet Orally Once a day Taking Omeprazole 20 MG Capsule Delayed Release 1 capsule 30 minutes before morning meal Orally Once a day Taking Trulicity 1.5 MG/0.5ML Solution Pen-injector as directed Subcutaneous weekly DiscontinuedTrulicity 1.5 MG/0.5ML Solution Pen-injector as directed Subcutaneous weekly , stop date 06/22/2025Medication List reviewed and reconciled with the patientDiscontinued Trulicity 1.5 MG/0.5ML Solution Pen-injector as directed Subcutaneous weekly , stop date 06/22/2025Medication List reviewed and reconciled with the patient * Allergies: B yetta 10 MCG Penno[Allergies Verified] Objective: * Vitals: H t: 62, Wt:233, BMI:42.61, BP:134/82, HR:95, Temp:96.6, Wt-k.69. * P ast Orders: L ab:Complete Blood Count Auto Diff (Order Date - 11/25/2024) (Collection Date & Time - 11/25/2024 10:39 AM) Value Reference Range White Blood Count 6.4 4.8-10.8 - X10*3/uL Red Blood Count 4.60 4.20-5.50 - X10*6/uL Hemoglobin 14.0 12.0-16.0 - g/dl Hematocrit 41.7 37.0-47.0 - % Mean Corpuscular Volume 90.7 80.0-98.0 - fL Mean Corpuscular Hemoglobin 30.4 27.0-33.0 - pg Mean Corpuscular HGB Conc 33.6 31.0-35.0 - g/ dl Red Cell Distribution Width 13.1 11.0-16.0 - % Platelet Count 214 160-400 - X10*3/uL Mean Platelet Volume 10.2 9.4-12.3 - fL Neutrophils Percent Auto 51.6 45-73 - % Imm Gran Pct Auto 0.3 0.0-0.4 - % Lymphocytes Percent Auto 39.8 20-40 - % Monocytes Percent Auto 5.5 2-11 - % Eosinophils Percent Auto 2.2 0-4 - % Basophils Percent Auto 0.6 0-2 - % NRBC Pct Auto 0.0 0.0-0.2 - /100WBC Neutrophils Absolute Auto 3.3 2.0-8.3 - x10* 3/uL Imm Gran Abs Auto 0.02 0.00-0.03 - X10*3/uL Lymphocytes Absolute Auto 2.5 1.2-4.9 - X10* 3/uL Monocytes Absolute Auto 0.4 0.1-1.2 - X10*3/ uL Eosinophils Absolute Auto 0.1 0.0-0.4 - X10* 3/uL Basophils Absolute Auto 0.0 0.0-0.2 - X10*3/ uL NRBC Abs Auto 0.000 0.0-0.012 - X10*3/uL L ab:Hemoglobin A1c (Order Date - 11/22/2024) (Collection Date & Time - 11/25/2024 10:39 AM) Value Reference Range Hemoglobin A1c % 7.2 H <6.0 - % Estimated Average Glucose 160 - mg/dL L ab:Basic Metabolic Panel (Order Date - 11/22/2024) (Collection Date & Time - 11/25/2024 10:39 AM) Value Reference Range Sodium 139 135-145 - mmol/L Blood Urea Nitrogen 8 L 9-16 - mg/dL Creatinine 0.76 0.5-1.4 - mg/dL Glucose Random 298 H 60-115 - mg/dL Calcium 9.9 8.4-10.2 - mg/dL Potassium 4.1 3.3-5.1 - mmol/L Chloride 106 96-108 - mmol/L Carbon Dioxide 25 22-29 - mmol/L Anion Gap 12 12-20 - Estimated Glomerular Filt Rate > 60 - * Examination: G eneral Examination: GENERAL APPEARANCE: [...] LUNGS: c lear to auscultation . BREASTS: N ot examined. ABDOMEN: b owel sounds normal, no ascites, no organomegaly, no mass, morbid obesity. RECTAL EXAM: n ot examined. MUSCULOSKELETAL: e xtremities unremarkable, no clubbing, cyanosis or edema, Old surgical scar over lumbar spine, old surgical scar well healed lower right hip, pain to range of motion left hip and both knees. PERIPHERAL PULSES: n ormal. NEUROLOGIC: a lert and oriented, cranial nerves 2-12 grossly intact, deep tendon reflexes 2+ symmetrical, motor strength normal upper and lower extremities, sensory exam intact. PSYCH: a lert, oriented, cognitive function intact, thought process logical, goal directed, speech clear. Assessment: * Assessment: 1. P rimary osteoarthritis of left hip - M16.12 (Primary) N otes :She is medically cleared for surgery to replace the left hip. The benefit is regular risk is small. I found no contraindication to surgery today. She seems healthy and well. 2 . H ypothyroidism, unspecified - E03.9 N otes :Her thyroid function tests are in the normal range and no change in her medication dosage is needed. 3 . O ther intervertebral disc degeneration, lumbosacral region - M51.37 ? N otes :The pain in her spine has been absent lately and she is completing all of the activities of daily living without difficulty. 4 . G raves disease - E05.00 N otes :She was continued on current medications without change. 5 . P rimary osteoarthritis of right hip - M16.11 N otes :She has no pain in her right hip with ambulation at this time after arthroplasty.. 6 . L umbosacral radiculopathy due to degenerative joint disease of spine - M47.27 N otes :She had surgery in the with relief of pain. She has occasional achess and pains and llumbar spine with exertion. 7 . A ge-related incipient cataract of right eye - H25.091 N otes :She has medical clearance for the procedure. There are no contraindications. The procedure is indicated. The risk is that of a normal healthy woman. 8 . E ssential hypertension - I10 N otes :Her blood pressure was stable today and no change in her medications was necessary. 9 . F ormer smoker - Z87.891 N otes :She is highly motivated not to smoke and has a plan for prevention of relapse in times of stress or illness. Plan: * Treatment: 2. O thers Continue Simvastatin Tablet, 40 MG, 1 tablet in the evening, Orally, Once a day; C ontinue Valsartan Tablet, 80 MG, 1 tablet, Orally, Once a day. [...] tobacco use and urged to quit. 0 11/30/2024 DM Care Plan: P atient Lifestyle Goals P atient wants to be able to manage diabetes without too much effort. T reatment Goals B lood Sugars less than < 115, HbA1C < 7.0. B arriers n o barriers. S elf-Managment Goals W ork on weight loss, with a goal of losing 1 lb per week. * Follow Up: A s Scheduled, End december (Reason: Annual Exam, Post-surgery check-up) * Images: * Sign off status: Completed true * Provider: Priya Marin MD Date: 0 11/29/2024 Generated for Jose Manueli ng/Facarolinag/eTransmitting on: 1 11:19 AM EDT History and Physical Notes * HPI (History of Present Illness) Category Sub-Category Detail Notes COVID-19 Screening Questions Have you had any new onset fever, chills, cough, congestion, sore throat, shortness of breath, muscle aches?: No Examination Category Sub-Category Detail Notes General Examination [...] lesion s, anicteric PERIPHERAL PULSES: normal BREASTS: Not examined MUSCULOSKELETAL: extremities unremark able, no clubbing, cyanosis or edema, Old surgical scar over lumbar spine, old surgical scar well healed lower right hip, pain to range of motion left hip and both knees LYMPH NODES: no enlarged lymph no rick,spleen normal RECTAL EXAM: not examined PSYCH: alert, oriented, cog nitive function intact, thought process logical, goal directed, speech clear ORAL CAVITY: normal, unremarkable
--- OUTSIDE RECORDS SUMMARY | 2024-12-09 06:46 | XMS_ITS ---
Author Organization Mike Marin III, MD Address [address] [place] [address] [place] [address] Care Team Providers Care Rehabilitation Services Coordinator Name Role Phone Dr. Mike Marin III Primary Care Provider REASON FOR VISIT HCC Risk Codes Social History Sex Assigned At : Social History Observation Description Sex Assigned At Female Encounters Encounter Location Date Provider Diagnosis Mike Marin III, MD [address] [place] [address] [place] [address] 12/09/2024 Mike Marin Plan Of Treatment Next Appt Details Provider Name:Mike Marin , 07/17/2025 10:15:00 AM, [address] [place] [address] [place], [address], Provider Name:Mike Marin , 01/15/2026 10:00:00 AM, [address] [place] [address] [address] [place], [address], Progress Notes * Cherise ROSSDOB: [birth year] (64 yo F)Acc No.[id number]:12/09/2024 Patient: Cherise WEI :1960 A ge:64 Y S ex:Female Address:[address] [place] [phone] * true * Date: Generated for Printi ng/Facarolinag/eTransmitting on: 1 11:19 AM EDT
--- OUTSIDE RECORDS SUMMARY | 2025-01-14 06:00 | XMS_ITS ---
Author Organization Mike Marin III, MD Address [address] [place] [address] [place] [address] Care Team Providers Care Snath Handle Assembler Name Role Phone Dr. Mike Marin III Primary Care Provider Allergies Allergen (clinical drug ingredient) Drug/Non Drug Allergy documented on EMR Reaction Allergy Type Onset Date Status Byetta 10 MCG Pen Unknown Drug Allergy Active Results Component Value Reference Range Notes URINE DIP STICK Reviewed date:01/14/2025 03:32:28 PM Interpretation:Normal Performing Lab: Notes/Report: Normal pH 5.0 5.0 - 9.0 AMY neg Negative - NIT neg Negative - PRO neg Negative - Trace GLU neg Negative - KET neg Negative - UBG 0.2 0.1 - 1.8 THEA neg 0.2 - 1.3 BLD neg Negative - Menstrating no Reason For Referral Reason screening colonoscop y Diagnosis 1 Encounter for screen ing colonoscopy (Z12.11) Referral Organization Mike Marin III, MD Referring Provider First Name Mike Referring Provider Last Name Tania Referring Provider Speciality Internal M edicine Referred Provider Arnie Zimmerman Referred Provider Specialty Gastroentero logy General Notes Ros Stahl CMA 03/12 02:53:38 PM >ref/demo/progress note faxed to Dr Zimmerman office called spoke to Cynthia dowd pt consult appt for 06/26/2025 at 2:30pm pt mailed this appt info and called and made aware of this appt Referral Priority Routine Referral Appointment Date 06/26/2025 REASON FOR VISIT Annual Exam no recent labs but patient does have order Medications Medication SIG (Take, Route, Frequency, Duration) Notes Start Date End Date Status Valsartan 80 MG 1 tablet Orally Once a day 023 Active Synthroid 100 MCG as directed Orally O nce a day Active Liothyronine Sodium 5 MCG 1 tablet on an empty stomach Orally Once a day 10/18/2021 Active Trulicity 1.5 MG/0.5ML as directed Subcu taneous weekly 03/27/2024 Active Omeprazole 20 MG 1 capsule 30 minutes before morning meal Orally Once a day Active Simvastatin 40 MG 1 tablet in the even ing Orally Once a day Active Aspirin 81 81 MG 1 tablet Orally Once a day Active Social History [...] Additional Findings: Tobacco Non-User Ex-cigaret te smoker AUDIT-C (Standard) Question Answer Notes Did you have a drink containing alcohol in the p ast year? No Points 0 Interpretation Negative Vital Signs Temperature 98.6 degrees Fahrenheit 01/15/20 25 Blood pressure systolic 140 mm Hg 01/15/20 25 Blood pressure diastolic 82 mm Hg 025 Heart Rate 88 /min 01/14/2025 Height 62 in 01/14/2025 Weight 232 lbs 01/14/2025 BMI 42.43 kg/m2 01/14/2025 Encounters Encounter Location Date Provider Diagnosis Mike Marin III, MD [address] [place] [address] [place] [address] 01/14/2025 Mike Marin Hypothyroidism, unspecified E03.9 ; Type 2 diabetes mellitus without complication, without long-term current use of insulin E11.9 ; Screening mammogram for breast cancer Z12.31 ; Other intervertebral disc degeneration, lumbosacral region M51.37 ; Graves disease E05.00 ; Former smoker Z87.891 ; Primary osteoarthritis of right hip M16.11 ; Primary osteoarthritis of left hip M16.12 and Morbid obesity E66.01 Assessments Encounter Date Diagnosis (ICD Code) Assessment Notes T reatment Notes Treatment Clinical Notes 01/14/2025 Hypothyroidism, unspecified (ICD-10 - E03.9) Her thyroid function tests have been in the normal range and no change in her medication dosage is needed. 01/14/2025 Type 2 diabetes mellitus without complication, without long-term current use of insulin (ICD-10 - E11.9) Her hemoglobin A1c was 7.2 but her fasting glucose was 298.We have reviewed her weight loss strategy and nutrition. 01/14/2025 Screening mammogram for breast cancer (ICD-10 - Z12.31) We have scheduled her annual screening mammogram. 01/14/2025 Other intervertebral disc degeneration, lumbosacral region (ICD-10 - M51.37) The pain in her spine has been absent lately and she is completing all of the activities of daily living without difficulty. 01/14/2025 Graves disease (ICD-10 - E05.00) She was continued on current medications without change. 01/14/2025 Former smoker (ICD-10 - Z87.891) She is highly motivated not to smoke and has a plan for prevention of relapse in times of stress or illness. 01/14/2025 Primary osteoarthritis of right hip (ICD-10 - M16.11) She has no pain in her right hip with ambulation at this time after arthroplasty.. 01/14/2025 Primary osteoarthritis of left hip (ICD-10 - M16.12) She is medically cleared for surgery to replace the left hip. The benefit is regular risk is small. I found no contraindication to surgery today. She seems healthy and well. 01/14/2025 Morbid obesity (ICD-10 - E66.01) We discussed bariatric surgery and a weight loss program referral, but she declined. She will continue with her seed expert and her current diet. We made a plan to lose weight at a rate of one half a pound per week. Plan Of Treatment Medication Medication Name Sig Start Date Stop Date Notes Valsartan 80 MG 1 tablet Orally Once a day 08/25/2023 Synthroid 100 MCG as directed Orally Once a day Liothyronine Sodium 5 MCG 1 tablet on an empty stomach Orally Once a day 10/18/2021 Trulicity 1.5 MG/0.5ML as directed Subcutaneous weekly 11/2023 Omeprazole 20 MG 1 capsule 30 minutes before morning meal Orally Once a day Simvastatin 40 MG 1 tablet in the even ing Orally Once a day Aspirin 81 81 MG 1 tablet Orally Once a day Pending Test Test Name Order Date PROFILE, FASTING (COMPREHENSIVE METABOLI C) 01/14/2025 TSH (THYROID STIMULATING HORMONE) 2024 CBC w DIFF 01/14/2025 FREE T3 (FT3) 01/14/2025 Lipid Panel 01/14/2025 Free T4 (Free Thyroxine) 01/14/2025 MM tomosynthesis screening BI 01/14/2025 Hemoglobin A1c 01/14/2025 Referrals Referral Date Details 01/14/2025 01/14/2025, screenin g colonoscopy, Arnie Irbyifford Next Appt Details Follow Up: 3 Months, Reason: OV Provider Name:Mike Marin , 07/17/2025 10:15:00 AM, [address] [place] [address] PAST[address] F[place], KARTHIK WEBB, [id number], Provider Name:Mike Marin , 01/15/2026 10:00:00 AM, [address] [place] [address] PAST[address] FERG[place], KARTHIK WEBB, [phone], Progress Notes * Cherise ROSSDOB: [birth year] (64 yo F)Acc No.[id number]:01/14/2025 Progress Notes Patient: Cherise WEI Provider: Priya Marin MD :[id number] A ge:64 Y S ex:Female Date:01/14/2025 Address:[address] [place] [id number] Subjective: * Chief Complaints: * A nnual Exam no recent labs but patient does have order * HPI: D epression Screening: hortencia says r eye great p cat, left is immature still, manager gyn is [place] [facility] in [facility], back is same fine am only. fbs 149. S he returns to the office at the age of 64 for her annual physical examination. She saw her rig operator, Dr. Clarke, recently who said her right eye after the cataract surgery was great. The cataract in the left eye is still immature and does not need to be removed. She is due for a mammogram which we have scheduled. She is due for colonoscopy which we are scheduling.He has had no chest pain or shortness of breath or diaphoresis.. Her systolic blood pressure remains elevated at 140. PHQ-9 L ittle interest or pleasure in doing things?Not at all F eeling down, depressed, or hopeless N ot at all T rouble falling or staying asleep, or sleeping too much S everal days F eeling tired or having little energy S everal days P oor appetite or overeating N ot at all F eeling bad about yourself or that you are a failure, or have let yourself or your family down N ot at all T rouble concentrating on things, such as reading the newspaper or watching television N ot at all M oving or speaking so slowly that other people could have noticed; or the opposite, being so fidgety or restless that you have been moving around a lot more than usual N ot at all T houghts that you would be better off or of hurting yourself in some way N ot at all T otal Score 2 I nterpretation M inimal Depression C OVID-19 Screening: Questions H ave you had any new onset fever, chills, cough, congestion, sore throat, shortness of breath, muscle aches? N o F all Risk Screening: Fall History H ave you had any falls with injury in the past year? N o H ave you had two or more falls in the past year? N o F all Risk Assessment: N o falls in the past year S MUNIRA Questions: SDOH Questions I n the past year have you been worried about losing your housing? N o I n the past year have you or any family members you live with been unable to get any of the following when it was really needed? Check all that apply: N one * ROS: G eneral/Constitutional: pain L umbar spine, Both hips. C hills d enies.?Fatigue a dmits. F [...] lumbosacral spine decompressions procedure 1997tonsillectomy tubal ligation [id number] colonoscopy Right total hip replacement 05/01/2023Right hip surgery Arthroplasty Hip Prosthetic Replacement 2024-12-10 * Hospitalization/Major Diagno stic Procedure: D enies [...] dditional Findings: Tobacco Non-User E x-cigarette smoker D rug/Alcohol: A RAFFI-C (Standard) D id you have a drink containing alcohol in the past year? N o P oints 0 I nterpretation N egative S he was born in [place], [place]. She has 2 daughters, Gay and Abby. She has 2 brothers Jeremiah De La Fuente and 2 sisters Abby and Rohit. * Medications: T akingAspirin 81 81 MG Tablet Delayed Release 1 tablet Orally Once a day Simvastatin 40 MG Tablet 1 tablet in [...] MG/0.5ML Solution Pen-injector as directed Subcutaneous weekly Medication List reviewed and reconciled with the patientTaking Aspirin 81 81 MG Tablet Delayed Release 1 tablet Orally Once a day Taking Simvastatin 40 MG Tablet 1 tablet [...] MG/0.5ML Solution Pen-injector as directed Subcutaneous weekly Medication List reviewed and reconciled with the patient * Allergies: B yetta 10 MCG Penno[Allergies Verified] Objective: * Vitals: H t: 62, Wt:232, BMI:42.43, BP:140/82, HR:88, Temp:98.6, Wt-k.23. * P ast Orders: L ab:Complete Blood [...] Estimated Glomerular Filt Rate > 60 - Lab:URINE DIP STICK * Collection Date 01/14/2025 01/10/202410/21/2016 Collection Time 10:03 AM Order Date 01/14/2025 01/10/2024 10/21/2016 Result: Normal normal SG NR 1.000 (Ref Range: 1.005 - 1.025) 1.025 pH 5.0 (Ref Range: 5.0 - 9.0) 5.0 (Ref Range: 5.0 - 9.0) 5 AMY neg (Ref Range: Negative -) neg (Ref Range: Negative -) neg NIT neg (Ref Range: Negative -) neg (Ref Range: Negative -) neg PRO neg (Ref Range: Negative - Trace) neg (Ref Range: Negative - Trace) neg GLU neg (Ref Range: Negative -) 250 (Ref Range: Negative -) neg KET neg (Ref Range: Negative -) neg (Ref Range: Negative -) small UBG 0.2 (Ref Range: 0.1 - 1.8) 0.2 (Ref Range: 0.1 - 1.8) normal THEA neg (Ref Range: 0.2 - 1.3) neg (Ref Range: 0.2 - 1.3) + BLD neg (Ref Range: Negative -) neg (Ref Range: Negative -) neg Menstrating no no no * Examination: G eneral Examination: GENERAL APPEARANCE: p leasant, well nourished, well developed, in no acute distress, calm and relaxed, obese, woman. HEAD: a traumatic, normocephalic. EYES: [...] c lear to auscultation . BREASTS: n o masses palpable bilaterally, no drainage, no discharge, no dimpling, symmetrical, nontender. ABDOMEN: b owel sounds normal, no ascites, no organomegaly, no mass, centripital obesity. RECTAL EXAM: n ot examined. MUSCULOSKELETAL: e xtremities unremarkable, no clubbing, cyanosis or edema, Surgical scar lumbar spine, knee replacements, right knee.. PERIPHERAL PULSES: n ormal. NEUROLOGIC: a lert and oriented, cranial nerves 2-12 grossly intact, deep tendon reflexes 2+ symmetrical, motor strength normal upper and lower extremities, sensory exam intact. PSYCH: a lert, oriented. Assessment: * Assessment: 1. T ype 2 diabetes mellitus without complication, without long-term current use of insulin - E11.9 (Primary) N otes :Her hemoglobin A1c was 7 .2 but her fasting glucose was 298.We have reviewed her weight loss strategy and nutrition. 2 . H ypothyroidism, unspecified - E03.9 N otes :Her thyroid function tests have been in the normal range and no change in her medication dosage is needed. 3 . S creening mammogram for breast cancer - Z12.31 N otes :We have scheduled her annual screening mammogram. 4 . O ther intervertebral disc degeneration, lumbosacral region - M51.37 ? N otes :The pain in her spine has been absent lately and she is completing all of the activities of daily living without difficulty. 5 . G raves disease - E05.00 N otes :She was continued on current medications without change. 6 . F ormer smoker - Z87.891 N otes :She is highly motivated not to smoke and has a plan for prevention of relapse in times of stress or illness. 7 . P rimary osteoarthritis of right hip - M16.11 N otes :She has no pain in her right hip with ambulation at this time after arthroplasty.. 8 . P rimary osteoarthritis of left hip - M16.12 N otes :She is medically cleared for surgery to replace the left hip. The benefit is regular risk is small. I found no contraindication to surgery today. She seems healthy and well. 9 . M orbid obesity - E66.01 N otes :We discussed bariatric surgery and a weight loss program referral, but she declined. She will continue with her seed expert and her current diet. We made a plan to lose weight at a rate of one half a pound per week. Plan: * Treatment: 2. H ypothyroidism, unspecified Continue Liothyronine Sodium Tablet, 5 MCG, 1 tablet on an empty stomach, Orally, Once a day; C ontinue Synthroid Tablet, 100 MCG, as directed, Orally, Once a day; C ontinue Omeprazole Capsule Delayed Release, 20 MG, 1 capsule 30 minutes before morning meal, Orally, Once a day; C ontinue Trulicity Solution Pen-injector, 1.5 MG/0.5ML, as directed, Subcutaneous, weekly. L AB: PROFILE, FASTING (COMPREHENSIVE METABOLIC) L AB: TSH (THYROID STIMULATING HORMONE) L AB: CBC w DIFF L AB: FREE T3 (FT3) L AB: Lipid Panel L AB: Free T4 (Free Thyroxine) L AB: Hemoglobin A1c 3. S creening mammogram for breast cancer I maging: MM tomosynthesis screening BI 4. O thers Continue Simvastatin Tablet, 40 MG, 1 tablet in the evening, Orally, Once a day; C ontinue Valsartan Tablet, 80 MG, 1 tablet, Orally, Once a day. ? Referral To:[facility] Reason:screening colonoscopy * Labs: * L ab: URINE DIP STICK (Collection Date & Time - 01/14/2025) N ormal Value Reference Range p H 5.0 5.0 - 9.0 * L EU neg Negative - * N IT neg Negative - * P RO neg Negative - Trace * G HASMUKH neg Negative - * K ET neg Negative - * U BG 0.2 0.1 - 1.8 * B IL neg 0.2 - 1.3 * B LD neg Negative - * M enstrating no * Procedure Codes: 8 1002 URINE-NO MICRO * Preventive Medicine: Counseling: C are goal [...] tobacco use and urged to quit. 0 01/15/2025 * Follow Up: 3 Months (Reason: OV) * Images: * Sign off status: Completed true * Provider: Priya Marin MD Date: 0 01/14/2025 Generated for Chadd luna/Jose/Ivone on: 1 11:18 AM EDT History and Physical Notes * HPI (History of Present Illness) Category Sub-Category Detail Notes Depression Screening PHQ-9 Little inte rest or pleasure in doing things: Not at all Feeling down, depressed, or hopeless: No t at all Trouble falling or staying asleep, or sl eeping too much: Several days Feeling tired or having little energy: S everal days Poor appetite or overeating: Not at all Feeling bad about yourself o r that you are a failure, or have let yourself or your family down: Not at all Trouble concentrating on thi ngs, such as reading the newspaper or watching television: Not at all Moving or speaking so slowly that other people could have noticed; or the opposite, being so fidgety or restless that you have been moving around a lot more than usual: Not at all Thoughts that you would be b cristy off or of hurting yourself in some way: Not at all Total Score: 2 Interpretation: Minimal Depression Fall Risk Screening Fall History Have you had any falls with injury in the past year?: No Have you had two or more falls in the year?: No Fall Risk Assessment:: No falls in the p year COVID-19 Screening Questions Have you had any new onset fever, chills, cough, congestion, sore throat, shortness of breath, muscle aches?: No SDOH Questions SDOH Questions In the past year have you been worried about losing your housing?: No In the past year have you or any family members you live with been unable to get any of the following when it was really needed? Check all that apply:: None Examination Category Sub-Category Detail Notes General Examination GENERAL APPEARANCE: pleasant , well nourished, well developed, in no acute distress, calm and relaxed, obese, woman HEAD: atraumatic, normocep halic EYES: eomi, perrla, anicte deidra, conjugate EARS: normal NOSE: septum intact NECK/THYROID: no jugular venous di stention, no carotid bruit, thyroid normal HEART: no clicks, gallops, murmurs, or rubs, regular rhythm, S1, S2 normal, no s3, or vascular bruits LUNGS: clear to auscultatio n ABDOMEN: bowel sounds normal, no ascites, no organomegaly, no mass, centripital obesity NEUROLOGIC: alert and oriented, cranial nerves 2-12 grossly intact, deep tendon reflexes 2+ symmetrical, motor strength normal upper and lower extremities, sensory exam intact SKIN: no suspicious lesion s, anicteric PERIPHERAL PULSES: normal BREASTS: no masses palpable b ilaterally, no drainage, no discharge, no dimpling, symmetrical, nontender MUSCULOSKELETAL: extremities unremark able, no clubbing, cyanosis or edema, Surgical scar lumbar spine, knee replacements, right knee. LYMPH NODES: no enlarged lymph no rick,spleen normal RECTAL EXAM: not examined PSYCH: alert, oriented ORAL CAVITY: normal, unremarkable Consultation Request Notes Referral Date Referring Provider Referred Provider Not es 01/14/2025 Mike Marin Bernard screening colonoscopy
--- OUTSIDE RECORDS SUMMARY | 2025-04-15 05:15 | XMS_ITS ---
Author Organization Mike Marin III, MD Address [address] [place] [address] [place] [address] Care Team Providers Care Anodic Treater Name Role Phone Dr. 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 Medications Medication SIG (Take, Route, Frequency, Duration) Notes Start Date End Date Status Trulicity 1.5 MG/0.5ML as directed Subcu taneous weekly 03/27/2024 Active Synthroid 100 MCG as directed Orally O nce a day Active Liothyronine Sodium 5 MCG 1 tablet on an empty stomach Orally Once a day 10/18/2021 Active Valsartan 80 MG 1 tablet Orally Once a day 023 Active Simvastatin 40 MG 1 tablet in the even ing Orally Once a day Active Social History [...] Problem Status W/U Status Risk Notes Problem [id number] Morbid obesity (E66.01) Active confirmed We discussed bariatric surgery and a weight loss program referral, but she declined. She will continue with her compensation vice president and her current diet. We made a plan to lose weight at a rate of one half a pound per week. Vital Signs Temperature 97.0 degrees Fahrenheit 04/15/20 25 Blood pressure systolic 132 mm Hg 04/15/20 25 Blood pressure diastolic 79 mm Hg 025 Heart Rate 95 /min 04/15/2025 Height 62 in 04/15/2025 Weight 224 lbs 04/15/2025 BMI 40.97 kg/m2 04/15/2025 Encounters Encounter Location Date Provider Diagnosis Mike Marin III, MD [address] [place] [address] [address] [place], [place] [id number] 04/15/2025 Mike Marin Hypothyroidism, unspecified E03.9 ; Type 2 diabetes mellitus without complication, without long-term current use of insulin E11.9 ; Obesity (BMI 30-39.9) E66.9 ; Other intervertebral disc degeneration, lumbosacral region M51.37 ; Graves disease E05.00 ; Former smoker Z87.891 and Morbid obesity E66.01 Assessments Encounter Date Diagnosis (ICD Code) Assessment Notes Treat ment Notes Treatment Clinical Notes 04/15/2025 Hypothyroidism, unspecified (ICD-10 - E03.9) Her thyroid function tests have been in the normal range and no change in her medication dosage is needed. 04/15/2025 Type 2 diabetes mellitus without complication, without long-term current use of insulin (ICD-10 - E11.9) Her hemoglobin A1c was 7.2 but her fasting glucose was 298.We have reviewed her weight loss strategy and nutrition. 04/15/2025 Obesity (BMI 30-39.9) (ICD-10 - E66.9) She has lost 8 pounds since her last visit. Her weight loss strategy was reviewed and continued. No change in her medications was necessary today. 04/15/2025 Other intervertebral disc degeneration, lumbosacral region (ICD-10 - M51.37) The pain in her spine has been absent lately and she is completing all of the activities of daily living without difficulty. 04/15/2025 Graves disease (ICD-10 - E05.00) She was continued on current medications without change. 04/15/2025 Former smoker (ICD-10 - Z87.891) She is highly motivated not to smoke and has a plan for prevention of relapse in times of stress or illness. 04/15/2025 Morbid obesity (ICD-10 - E66.01) We discussed bariatric surgery and a weight loss program referral, but she declined. She will continue with her compensation vice president and her current diet. We made a plan to lose weight at a rate of one half a pound per week. Plan Of Treatment Medication Medication Name Sig Start Date Stop Date Notes Trulicity 1.5 MG/0.5ML as directed Subcutaneous weekly 11/2023 Synthroid 100 MCG as directed Orally Once a day Liothyronine Sodium 5 MCG 1 tablet on an empty stomach Orally Once a day 10/18/2021 Valsartan 80 MG 1 tablet Orally Once a day 08/25/2023 Simvastatin 40 MG 1 tablet in the even ing Orally Once a day Pending Test Test Name Order Date PROFILE, FASTING (COMPREHENSIVE METABOLI C) 04/15/2025 TSH (THYROID STIMULATING HORMONE) 2024 CBC w DIFF 04/15/2025 Lipid Panel 04/15/2025 Free T4 (Free Thyroxine) 04/15/2025 Hemoglobin A1c 04/15/2025 Next Appt Details Follow Up: 3 Months, Reason: OV Provider Name:Mike Marin , 07/17/2025 10:15:00 AM, [address] [place] [address] [address], [place], [address], Provider Name:Mike Marin , 01/15/2026 10:00:00 AM, [address] [place] [address] [address], [place], [phone], Progress Notes * ZAHRATHOMAS CheriseDOB: 8 (64 yo F)Acc No.[id number]:04/15/2025 Progress Notes Patient: Cherise WEI Provider: Priya Marin MD :1960 A ge:64 Y S ex:Female Date:04/15/2025 Address:[address] [place], [place] [id number] Subjective: * Chief Complaints: * D iabetesObesityLumbar radiculopathyHypothyroidismArthritis her hip * HPI: C OVID-19 Screening: She returns for medical management. She has lost a few pounds. We discussed her weight loss strategy. I offered to give her the Ozempic but she wants to stay on Trulicity. No recent blood work is available. Her back pain is minimal. He has been compliant with all of her medications. Questions H ave you had any new onset fever, chills, cough, congestion, sore throat, shortness of breath, muscle aches? N o * ROS: G eneral/Constitutional: pain R ight hip and low back. C hills d enies. F atigue a dmits. F [...] lumbosacral spine decompressions procedure 1997tonsillectomy tubal ligation [id number] colonoscopy Right total hip replacement 3Arthroplasty right Hip Prosthetic Replacement 2024-12-10 * Hospitalization/Major Diagno [...] x-cigarette smoker S he was born in [place], [place]. She has 2 daughters, Gay and [...] a day Taking Trulicity 1.5 MG/0.5ML Solution Pen- injector as directed Subcutaneous weekly DiscontinuedOmeprazole 20 MG Capsule Delayed Release 1 capsule 30 minutes before morning meal Orally Once a day Aspirin 81 81 MG Tablet Delayed Release 1 tablet Orally Once a day Medication List reviewed and reconciled with the patientDiscontinued Omeprazole 20 MG Capsule Delayed Release 1 capsule 30 minutes before morning meal Orally Once a day Discontinued Aspirin 81 81 MG Tablet Delayed Release 1 tablet Orally Once a day Medication List reviewed and reconciled with the patient * Allergies: B yetta 10 MCG Penno[Allergies Verified] Objective: * Vitals: H t: 62, Wt:224, BMI:40.97, BP:132/79, HR:95, Temp:97.0, Wt-k.6. * P ast Orders: Lab:URINE DIP STICK * Collection Date 01/14/2025 01/10/2024 10/21/2016 Collection Time 10:03 AM Order Date 01/14/2025 [...] LUNGS: c lear to auscultation . BREASTS: no masses palpable bilaterally. ABDOMEN: b owel sounds normal, no ascites, no organomegaly, no mass, morbid obesity. RECTAL EXAM: n ot examined. MUSCULOSKELETAL: e xtremities unremarkable, no clubbing, cyanosis or edema, Healed surgical incision right hip. PERIPHERAL PULSES: n ormal. NEUROLOGIC: a lert and oriented, cranial nerves 2-12 grossly intact, deep tendon reflexes 2+ symmetrical, motor strength normal upper and lower extremities, sensory exam intact. PSYCH: a lert, oriented. Assessment: * Assessment: 1. T ype 2 diabetes mellitus without complication, without long-term current use of insulin - E11.9 (Primary) N otes :Her hemoglobin A1c was 7.2 but her fasting glucose was 298.We have reviewed her weight loss strategy and nutrition. 2 . H ypothyroidism, unspecified - E03.9 N otes :Her thyroid function tests have been in the normal range and no change in her medication dosage is needed. 3 . O besity (BMI 30-39.9) - E66.9 N otes :She has lost 8 pounds since her last visit. Her weight loss strategy was reviewed and continued. No change in her medications was necessary today. 4 . O ther intervertebral disc degeneration, [...] times of stress or illness. 7 . M orbid obesity - E66.01 N otes :We discussed bariatric surgery and a weight loss program referral, but she declined. She will continue with her compensation vice president and her current diet. We made a plan to lose weight at a rate of one half a pound per week. Plan: * Treatment: 2. H ypothyroidism, unspecified Continue Liothyronine Sodium Tablet, 5 MCG, 1 tablet on an empty stomach, Orally, Once a day; C ontinue Synthroid Tablet, 100 MCG, as directed, Orally, Once a day; C ontinue Trulicity Solution Pen-injector, 1.5 MG/0.5ML, as directed, Subcutaneous, weekly. L AB: PROFILE, FASTING (COMPREHENSIVE METABOLIC) L AB: TSH (THYROID STIMULATING HORMONE) L AB: CBC w DIFF L AB: Lipid Panel L AB: Free T4 (Free Thyroxine) L AB: Hemoglobin A1c 3. O besity (BMI 30-39.9) L AB: PROFILE, FASTING (COMPREHENSIVE METABOLIC) L AB: TSH (THYROID STIMULATING HORMONE) L AB: CBC w DIFF L AB: Lipid Panel L AB: [...] tobacco use and urged to quit. 0 04/15/2025 DM Care Plan: P atient Lifestyle Goals [...] * Provider: Priya Marin MD Date: 0 04/15/2025 Generated for Chadd luna/Jose/Antonioitting on: 1 11:18 AM EDT History and [...] PULSES: normal BREASTS: no masses palpable b ilaterally MUSCULOSKELETAL: extremities unremark able, no clubbing, cyanosis or edema, Healed surgical incision right hip LYMPH NODES: no enlarged lymph no rick,spleen normal RECTAL EXAM: not examined PSYCH: alert, oriented ORAL CAVITY: normal, unremarkable
--- OUTSIDE RECORDS SUMMARY | 2025-06-26 10:35 | XMS_ITS ---
Author Organization [facility] Address [address] [place] [address] Care Team Providers Care Attorney Lawyer Name Role Phone Tania YOUNGBLOOD, Mike Primary Care Provider Arnie Page Jr Unavailable Allergies Allergen (clinical drug ingredient) Drug/Non Drug Allergy documented on EMR Reaction Allergy Type Onset Date Status Byetta 5 MCG Pen hives Drug Allergy Active REASON FOR VISIT Patient presents today for a SCREENING COLON Medications Medication SIG (Take, Route, Frequency, Duration) Notes Start Date End Date Status Valsartan 80 MG 1 tablet Orally Once a day Active Simvastatin 40 MG 1 tablet in the even ing Orally Once a day Active Trulicity 1.5 MG/0.5ML as directed Subcutaneous Active Liothyronine Sodium 5 MCG 1 tablet on an empty stomach Orally Once a day Active Levothyroxine Sodium 100 MCG/5ML 5 mL in the morning before breakfast Orally Once a day Active Social History Tobacco Use: Social History Observation Description Date Details (start date - stop date) Never Smoker NA - NA Tobacco Control (Standard) Question Answer Notes Tobacco use: Nonsmoker AUDIT-C (Standard) Question Answer Notes Did you have a drink contain ing alcohol in the past year? Yes How often did you have a dri nk containing alcohol in the past year? Monthly or less (1 point) How many drinks did you have on a typical day when you were drinking in the past year? 1 or 2 drinks (0 point) How often did you have six o r more drinks on one occasion in the past year? Never (0 point) Points 1 Interpretation Negative Vital Signs Temperature 96.8 degrees Fahrenheit 06/26/20 25 Blood pressure systolic 001 mm Hg 06/26/20 25 Blood pressure diastolic 01 mm Hg 025 Height 62 in 06/26/2025 Weight 225.4 lbs 06/26/2025 BMI 41.22 kg/m2 06/26/2025 Encounters Encounter Location Date Provider Diagnosis [facility] [address] [place] [address] 06/26/2025 Arnie Zimmerman Jr Encounter for screening for malignant neoplasm of colon Z12.11 Assessments Encounter Date Diagnosis (ICD Code) Assessment Notes Treatment Notes Treatment Clinical Notes Section Notes 06/26/2025 Encounter for screening for malignant neoplasm of colon (ICD-10 - Z12.11) Plan Of Treatment Future Test Test Name Order Date COLONOSCOPY 06/26/2025 Next Appt Details Provider Name:Arnie dukes Jr, 07/29/2025 09:50:00 AM, [address] [place] [address], [phone], Progress Notes * NE ROSSDOB: [birth year] (65 yo F)Acc No.[id number]:06/26/2025 Progress Notes Patient: NE WEI Provider: Kaylan Zimmerman MD :1960 A ge:65 Y S ex:Female Date:06/26/2025 Address:[address] [place], [place] [id number] Pcp:Mike Marin MD Subjective: * Chief Complaints: * 1 . Patient presents today for a SCREENING COLON. * Medical History: D iabetes type 2, Hypertension, Urinary incontinence due to stress. * Surgical History: l umbar decomp 1996, lumbar disecectomy 2010, tubal ligaution 1990, R hip replacement 2022, L hip replacement 2024. * Hospitalization/Major Diagno stic Procedure: H ip replacement 11/2024. * Family History: F ather: . M other: . No family Hx of liver or colon cancer. * Social History: T obacco Use: T obacco Control (Standard) T obacco use: N onsmoker. M iscellaneous: M arital status: . Occupation: retired. D rug/Alcohol: A RAFFI-C (Standard) D id you have a drink containing alcohol in the past year? Y es,?How often did you have a drink containing alcohol in the past year? M onthly or less (1 point), H ow many drinks did you have on a typical day when you were drinking in the past year? 1 or 2 drinks (0 point), H ow often did you have six or more drinks on one occasion in the past year? N ever (0 point), P oints 1 , I nterpretation N egative. * Medications: T aking Levothyroxine Sodium 100 MCG/5ML Solution 5 mL in the morning before breakfast Orally Once a day , Taking Liothyronine Sodium 5 MCG Tablet 1 tablet on an empty stomach Orally Once a day , Taking Trulicity 1.5 MG/0.5ML Solution Auto-injector as directed Subcutaneous , Taking Simvastatin 40 MG Tablet 1 tablet in the evening Orally Once a day , Taking Valsartan 80 MG Tablet 1 tablet Orally Once a day , Medication List reviewed and reconciled with the patient * Allergies: B yetta 5 MCG Pen: luis. Objective: * Vitals: W t: 225.4 lbs, Ht: 62 in, BMI: 41.22 Index, BP: 001/01 mm Hg, Temp: 96.8, Ht-cm: 157.48, Wt-k.24. Assessment: * Assessment: 1. E ncounter for screening for malignant neoplasm of colon - Z12.11 Plan: * Treatment: * Preventive Medicine: Counseling: C are goal follow-up plan: A willow Normal BMI Follow-up D ietary management education, guidance, and counseling, B CT management provided Y arteimo. Urinary Incontinence: U rinary Incontinence A ssessment: P resent, P romana of care documented: Y es, T ype of plan of care: B ladder training. Screenings: F all Risk Screening F all Risk Assessment: N o falls in the past year, S creening: N o falls in the past year, P romana of Care: N ot documented, no reason specified. * * The named appointment provid er may or may not be the originator of this progress note, and it is not deemed complete until electronically signed by the appointment provider. Sign off status: Pending * Provider: Kaylan Zimmerman MD Date: Generated for Chadd luna/Jose/Ivone on: 1 03:53 AM EDT
--- OUTSIDE RECORDS SUMMARY | 2025-07-15 11:18 | XMS_ITS | Clinical Summary ---
Author Organization [facility] Address [address] [place] [address] Care Team Providers Care Saw Cleaner Name Role Phone Mike Marin MD Primary Care Provider [phone] Allergies Active Allergy Reactions Criticality Noted Date [...] 89 05/02/2023 6:16 AM EDT Temperature 36.6 C (97.9 F) 05/02/2023 6:16 AM EDT Respiratory Rate 16 05/02/2023 6:16 AM EDT [...] - PCV) 2023 10/19/2011 Influenza Vaccine (#1) 2025 2, 08/18/2021, 06/25/2015 RSV Adult > 60+ Yrs or (1 - 1-dose 75+ series) 2033 Hepatitis B Vaccines Aged Out No long er eligible based on patient's age to complete this topic RSV Ped < 20 months Aged Out No longe r eligible based on patient's age to complete this topic Medical Devices Implanted Type Area Marketing Programs Specialist Device Identifier Shelf Expiration Date Model / Serial / Lot Tritanium Cluster Hole Shell 48mm Stry-Howm [id number] - [id number] Implanted:Qty: 1 on 05/01/2023 [place] [facility] [place] [facility] Right: Hip [employer] [id number] 03/07/2028 [id number] / / [id number] Liner Trident X3 0 Deg 36mm 3.9mm Sz D Stry-Howm [id number] - [id number] Implanted:Qty: 1 on 05/01/2023 by Gonzales [place] [facility] [place] [facility] Right: Hip [employer] [id number] 01/12/2028 [id number] / / [id number] Lp Hex Screw 6.5x15mm Stry-Howm [id number] - [id number] Implanted:Qty: 1 on 05/01/2023 by Gonzales Wong MD [place] [facility] [place] [facility] Right: Hip [employer] [id number] 11/15/2027 [id number] / / [id number] Lp Hex Screw 6.5x25mm Stry-Howm [id number] 58 - [id number] Implanted:Qty: 1 on 05/01/2023 by Gonzales Wong MD [place] [facility] [place] [facility] Right: Hip [employer] [id number] 01/18/2028 [id number] / / [id number] Size 4 Accolade Ii 127 Deg Stry-Howm [id number] - [id number] Implanted:Qty: 1 on 05/01/2023 by Gonzales Wong MD [place] [facility] [place] [facility] Right: Hip [employer] [id number] 03/15/2028 [id number] / / [id number] Hip Head Delta [employer] 36mm -5 Stry-Howm [id number] 190 - [id number] Implanted:Qty: 1 on 05/01/2023 by Gonzales Wong MD [place] [facility] [place] [facility] Right: Hip [employer] [id number] 02/05/2028 6570-0-036 / / [id number] Advance Directives For more information, please contact: [phone] Latest Code Status on File Code Status [...] way: discussion with patient . Care Teams Saw Cleaner Relationship Specialty Start Date End Date Mike Marin MD [address] [place] [phone] PCP - General Oncology 04/27/23
--- OUTSIDE RECORDS SUMMARY | 2025-07-15 11:19 | XMS_ITS | Patient Health Record ---
Author Organization Mike Marin III, MD Address [address] [place] [address] [place] [address] Care Team Providers Care Outreach Nurse Name Role Phone Dr. Mike Marin III [...] 1.3 BLD neg Negative - Menstrating no Basic Metabolic Panel Reviewed date:11/25/2024 03:03:48 PM Interpretation: Performing Lab:[facility], [address] [place] [phone] Notes/Report: Sodium 139 135-145 mmol/L Potassium 4.1 [...] A1c Reviewed date:11/25/2024 03:03:48 PM Interpretation: Performing Lab:[facility], [address] [place] [phone] Notes/Report: Hemoglobin A1c % 7.2 <6.0 % [...] average glucose, using the formula of the [id number] Average Glucose study (ADAG), Diabetes Care, Vol.31,#8, Apr. 2007 Complete Blood Count Auto Di ff Reviewed date:11/25/2024 03:03:48 PM Interpretation: Performing Lab:[facility], [address] [place] [phone] Notes/Report: White Blood Count 6.4 4.8-10.8 X10*3/uL Red Blood Count 4.60 4.20-5.50 X10*6/uL Hemoglobin 14.0 12.0-16.0 g/dl Hematocrit 41.7 37.0-47.0 % Mean Corpuscular Volume 90.7 80.0-98.0 fL Mean Corpuscular Hemoglobin 30.4 27.0-33.0 pg Mean Corpuscular HGB Conc 33.6 31.0-35.0 g/dl Red Cell Distribution Width 13.1 11.0-16.0 % Platelet Count 214 160-400 X10*3/uL Mean Platelet Volume 10.2 9.4-12.3 fL Neutrophils Percent Auto 51.6 45-73 % Imm Gran Pct Auto 0.3 0.0-0.4 % Lymphocytes Percent Auto 39.8 20-40 % Monocytes Percent Auto 5.5 2-11 % Eosinophils Percent Auto 2.2 0-4 % Basophils Percent Auto 0.6 0-2 % NRBC Pct Auto 0.0 0.0-0.2 /100WBC Neutrophils Absolute Auto 3.3 2.0-8.3 x10*3/u L Imm Gran Abs Auto 0.02 0.00-0.03 X10*3/uL Lymphocytes Absolute Auto 2.5 1.2-4.9 X10*3/u L Monocytes Absolute Auto 0.4 0.1-1.2 X10*3/uL Eosinophils Absolute Auto 0.1 0.0-0.4 X10*3/u L Basophils Absolute Auto 0.0 0.0-0.2 X10*3/uL NRBC Abs Auto 0.000 0.0-0.012 X10*3/uL Reason For Referral Reason screening colonoscop y Diagnosis 1 Encounter for screen ing colonoscopy (Z12.11) Referral Organization Mike Marin III, MD Referring Provider First Name Mike Referring Provider Last Name Tania Referring Provider Speciality Internal M edicine Referred Provider Arnie Zimmerman Referred Provider Specialty Gastroentero logy General Notes S Ros BARGE MASTER 03/12 02:53:38 PM >ref/demo/progress note faxed to Dr Zimmerman office called spoke to Cynthia dowd pt consult appt for 06/26/2025 at 2:30pm pt mailed this appt info and called and made aware of this appt Referral Priority Routine Referral Appointment Date 06/26/2025 Medications Medication SIG (Take, Route, Frequency, Duration) Notes Start Date End Date Status Trulicity 1.5 MG/0.5ML like directed Sub cutaneous weekly for 28 days Active Valsartan 80 MG TAKE 1 TABLET BY ALVA EVERY DAY FOR 90 DAYS for 90 Active Synthroid 100 MCG 1 tablet Orally Once a day for 90 days Active Simvastatin 40 MG 1 tablet in the even ing Orally Once a day Active Liothyronine Sodium 5 MCG 1 tablet on an empty stomach Orally Once a day 10/18/2021 Active Immunizations Vaccine Route Administration Date Status Comme nts COVID- 19 Vaccine Unknown 10/22/2020 Administered Given by [facility] Influenza, quad Unknown 07/09/2022 Administered COVID- 19 Vaccine Unknown 09/24/2020 Administered COVID- 19 Vaccine Unknown 07/28/2021 Administered COVID- 19 Vaccine Unknown 09/29/2022 Administered COVID- 19 Vaccine Unknown 02/09/2021 Administered COVID-19 Moderna SPIKEVAX Unknown 09/11/2023 Administer ed Influenza, quad Unknown 08/04/2017 Administered Influenza, quad Unknown 07/21/2021 Administered Influenza, quad Unknown 07/15/2020 Administered Fluzone High-Dose (HD-IIV3) Unknown 07/11/2024 Administered COVID-19 Moderna SPIKEVAX Unknown 07/11/2024 Administer ed COVID Moderna Bivalent Unknown 09/29/2022 Administered Influenza, quad Unknown 06/28/2023 Administered Social History Tobacco Use: Social History Observation Description Date Details (start date - stop date) Former Smoker NA - NA Sex Assigned At : Social History Observation Description Sex Assigned At Female Tobacco Use/Smoking Question Answer Notes Patient is a former smoker How long has it been since you last smoked? > 10 years Additional Findings: Tobacco Non-User Ex-cigaret te smoker Alcohol Screen Question Answer Notes Did you have a [...] (0 point) How often did you have 6 or more drinks on one occasion in the past year? Never (0 point) Points 1 Interpretation Negative AUDIT-C (Standard) Question Answer Notes Did you have a drink containing alcohol in the p ast year? No Points 0 Interpretation Negative Problems Problem Type SNOMED Code ICD Code Onset Dates Problem Status W/U Status Risk Notes Problem 9737263 Former smoker (Z87.891) Active confirmed She is highly motivated not to smoke and has a plan for prevention of relapse in times of stress or illness. Problem Hypothyroidism (15968838) Hypothyroidism, unspecified (E03.9) Active confirmed Her thyroid function tests have been in the normal range and no change in her medication dosage is needed. Problem Degeneration of lumbosacral intervertebral disc (45959233) Other intervertebral disc degeneration, lumbosacral region (M51.37) Active confirmed The pain in her spine has been absent lately and she is completing all of the activities of daily living without difficulty. Problem Benign mammary dysplasia (28415276) Other benign mammary dysplasias of unspecified breast (N60.89) Active confirmed She conducts breast self-examination and no findings are evident. She will continue to have annual mammograms. Problem 644665429 Obesity (BMI 30-39.9) (E66.9) Active confirmed She has lost 8 pounds since her last visit. Her weight loss strategy was reviewed and continued. No change in her medications was necessary today. Problem 09445816 Essential hypertension (I10) Active confirmed Her blood pressure was stable today and no change in her medications was necessary. Problem Graves disease (792437583) Graves disease (E05.00) Active confirmed She was continu ed on current medications without change. Problem Lumbosacral spondylosis without myelopathy (69770605) Lumbosacral radiculopathy due to degenerative joint disease of spine (M47.27) Active confirmed She had surgery in the with relief of pain. She has occasional achess and pains and llumbar spine with exertion. Problem 135297270429146 Primary osteoarthritis of left hip (M16.12) Active confirmed She is medicall y cleared for surgery to replace the left hip. The benefit is regular risk is small. I found no contraindication to surgery today. She seems healthy and well. Problem 672544757 Morbid obesity (E66.01) Active confirmed We discussed bariatric surgery and a weight loss program referral, but she declined. She will continue with her patient access director and her current diet. We made a plan to lose weight at a rate of one half a pound per week. Problem Type II diabetes mellitus without complication (802508932) Type 2 diabetes mellitus without complication, without long-term current use of insulin (E11.9) Active confirmed Her hemoglob in A1c was 7.2 but her fasting glucose was 298.We have reviewed her weight loss strategy and nutrition. Problem 029575589296365 Primary osteoarthritis of right hip (M16.11) Active confirmed She has no pain in her right hip with ambulation at this time after arthroplasty.. Problem 877436132 Age-related incipient cataract of right eye (H25.091) Active confirmed She has medical clearance for the procedure. There are no contraindications . The procedure is indicated. The risk is that of a normal healthy woman. Problem 918794265 Covid-19 (U07.1) Active confirmed She and her mother both recently had coronavirus infection. She has completely recovered and there are no sequela. Vital Signs Heart Rate 95 /min 04/15/2025 Temperature 97.0 degrees Fahrenheit 04/15/2025 Blood pressure diastolic 79 mm Hg 04/15/2025 Height 62 in 04/15/2025 Blood pressure systolic 132 mm Hg 04/15/2025 Weight 224 lbs 04/15/2025 BMI 40.97 kg/m2 04/15/2025 Encounters Encounter Location Date Provider Diagnosis Mike Marin III, MD [address] [place] [address] [place] [phone] 11/29/2024 Mike Marin Hypothyroidism, unspecified E03.9 ; Primary osteoarthritis of left hip M16.12 ; Other intervertebral disc degeneration, lumbosacral region M51.37 ; Graves disease E05.00 ; Primary osteoarthritis of right hip M16.11 ; Lumbosacral radiculopathy due to degenerative joint disease of spine M47.27 ; Age-related incipient cataract of right eye H25.091 ; Essential hypertension I10 and Former smoker Z87.891 Mike Marin III, MD [address] [place] [address] [place] [phone] 01/14/2025 Mike Marin Hypothyroidism, unspecified E03.9 ; Type 2 diabetes mellitus without complication, without long-term current use of insulin E11.9 ; Screening mammogram for breast cancer Z12.31 ; Other intervertebral disc degeneration, lumbosacral region M51.37 ; Graves disease E05.00 ; Former smoker Z87.891 ; Primary osteoarthritis of right hip M16.11 ; Primary osteoarthritis of left hip M16.12 and Morbid obesity E66.01 Mike Marin III, MD [address] [place] [address] [place] [phone] 04/15/2025 Mike Marin Hypothyroidism, unspecified E03.9 ; Type 2 diabetes mellitus without complication, without long-term current use of insulin E11.9 ; Obesity (BMI 30-39.9) E66.9 ; Other intervertebral disc degeneration, lumbosacral region M51.37 ; Graves disease E05.00 ; Former smoker Z87.891 and Morbid obesity E66.01 Mike Marin III, MD [address] [place] [address] [place] [address] 11/22/2024 Mike gomez Z01.818 ; Type 2 diabetes mellitus without complication, without long-term current use of insulin E11.9 and Obesity (BMI 30-39.9) E66.9 Mike Marin III, MD [address] [place] [address] [place] [address] 12/09/2024 Mike Marin Assessments Encounter Date Diagnosis (ICD Code) Assessment [...] today. She seems healthy and well. 01/14/2025 Hypothyroidism, unspecified (ICD-10 - E03.9) Her thyroid function tests have been in the normal range and no change in her medication dosage is needed. 01/14/2025 Type 2 diabetes mellitus without complication, without long-term current use of insulin (ICD-10 - E11.9) Her hemoglobin A1c was 7.2 but her fasting glucose was 298.We have reviewed her weight loss strategy and nutrition. 04/15/2025 Hypothyroidism, unspecified (ICD-10 - E03.9) Her thyroid function tests have been in the normal range and no change in her medication dosage is needed. 04/15/2025 Type 2 diabetes mellitus without complication, without long-term current use of insulin (ICD-10 - E11.9) Her hemoglobin A1c was 7.2 but her fasting glucose was 298.We have reviewed her weight loss strategy and nutrition. 11/22/2024 Preoperative clearance (ICD-10 - Z01.818) 11/29/2024 Other intervertebral disc degeneration, lumbosacral region (ICD-10 - M51.37) The pain in her spine has been absent lately and she is completing all of the activities of daily living without difficulty. 01/14/2025 Screening mammogram for breast cancer (ICD-10 - Z12.31) We have scheduled her annual screening mammogram. 04/15/2025 Obesity (BMI 30-39.9) (ICD-10 - E66.9) She has lost 8 pounds since her last visit. Her weight loss strategy was reviewed and continued. No change in her medications was necessary today. 11/22/2024 Type 2 diabetes mellitus without complication, without long-term current use of insulin (ICD-10 - E11.9) 11/29/2024 Graves disease (ICD-10 - E05.00) She was continued on current medications without change. 01/14/2025 Other intervertebral disc degeneration, lumbosacral region (ICD-10 - M51.37) The pain in her spine has been absent lately and she is completing all of the activities of daily living without difficulty. 04/15/2025 Other intervertebral disc degeneration, lumbosacral region (ICD-10 - M51.37) The pain in her spine has been absent lately and she is completing all of the activities of daily living without difficulty. 11/22/2024 Obesity (BMI 30-39.9) (ICD-10 - E66.9) 11/29/2024 Primary osteoarthritis of right hip (ICD-10 - M16.11) She has no pain in her right hip with ambulation at this time after arthroplasty.. 01/14/2025 Graves disease (ICD-10 - E05.00) She was continued on current medications without change. 04/15/2025 Graves disease (ICD-10 - E05.00) She was continued on current medications without change. 11/29/2024 Lumbosacral radiculopathy due to degenerative joint disease of spine (ICD-10 - M47.27) She had surgery in the with relief of pain. She has occasional achess and pains and llumbar spine with exertion. 01/14/2025 Former smoker (ICD-10 - Z87.891) She is highly motivated not to smoke and has a plan for prevention of relapse in times of stress or illness. 04/15/2025 Former smoker (ICD-10 - Z87.891) She is highly motivated not to smoke and has a plan for prevention of relapse in times of stress or illness. 11/29/2024 Age-related incipient cataract of right eye (ICD-10 - H25.091) She has medical clearance for the procedure. There are no contraindications. The procedure is indicated. The risk is that of a normal healthy woman. 01/14/2025 Primary osteoarthritis of right hip (ICD-10 - M16.11) She has no pain in her right hip with ambulation at this time after arthroplasty.. 04/15/2025 Morbid obesity (ICD-10 - E66.01) We discussed bariatric surgery and a weight loss program referral, but she declined. She will continue with her patient access director and her current diet. We made a plan to lose weight at a rate of one half a pound per week. 11/29/2024 Essential hypertension (ICD-10 - I10) Her blood pressure was stable today and no change in her medications was necessary. 01/14/2025 Primary osteoarthritis of left hip (ICD-10 - M16.12) She is medically cleared for surgery to replace the left hip. The benefit is regular risk is small. I found no contraindication to surgery today. She seems healthy and well. 11/29/2024 Former smoker (ICD-10 - Z87.891) She is highly motivated not to smoke and has a plan for prevention of relapse in times of stress or illness. 01/14/2025 Morbid obesity (ICD-10 - E66.01) We discussed bariatric surgery and a weight loss program referral, but she declined. She will continue with her patient access director and her current diet. We made a plan to lose weight at a rate of one half a pound per week. Plan Of Treatment Pending Test Test Name Order Date PROFILE, FASTING (COMPREHENSIVE METABOLI C) 01/17/2019 PROFILE, FASTING (COMPREHENSIVE METABOLI C) 01/10/2024 PROFILE, FASTING (COMPREHENSIVE METABOLI C) 04/15/2025 PROFILE, FASTING (COMPREHENSIVE METABOLI C) 05/28/2020 PROFILE, FASTING (COMPREHENSIVE METABOLI C) 07/08/2021 PROFILE, FASTING (COMPREHENSIVE METABOLI C) 07/19/2023 PROFILE, FASTING (COMPREHENSIVE METABOLI C) 03/27/2024 PROFILE, FASTING (COMPREHENSIVE METABOLI C) 08/01/2019 PROFILE, FASTING (COMPREHENSIVE METABOLI C) 11/08/2022 PROFILE, FASTING (COMPREHENSIVE METABOLI C) 07/24/2017 PROFILE, FASTING (COMPREHENSIVE METABOLI C) 06/27/2024 PROFILE, FASTING (COMPREHENSIVE METABOLI C) 12/10/2020 PROFILE, FASTING (COMPREHENSIVE METABOLI C) 09/27/2017 PROFILE, FASTING (COMPREHENSIVE METABOLI C) 04/15/2021 PROFILE, FASTING (COMPREHENSIVE METABOLI C) 01/14/2025 PROFILE, FASTING (COMPREHENSIVE METABOLI C) 01/19/2021 PROFILE, FASTING (COMPREHENSIVE METABOLI C) 08/01/2022 PROFILE, FASTING (COMPREHENSIVE METABOLI C) 11/16/2021 PROFILE, FASTING (COMPREHENSIVE METABOLI C) 01/30/2018 PROFILE, FASTING (COMPREHENSIVE METABOLI C) 10/18/2018 PROFILE, FASTING (COMPREHENSIVE METABOLI C) 06/12/2018 PROFILE, FASTING (COMPREHENSIVE METABOLI C) 02/26/2020 PROFILE, FASTING (COMPREHENSIVE METABOLI C) 11/26/2019 HEMOGLOBIN A1C (GLYCOHEMOGLOBIN) 020 HEMOGLOBIN A1C (GLYCOHEMOGLOBIN) 020 HEMOGLOBIN A1C (GLYCOHEMOGLOBIN) 019 HEMOGLOBIN A1C (GLYCOHEMOGLOBIN) 019 HEMOGLOBIN A1C (GLYCOHEMOGLOBIN) 020 HEMOGLOBIN A1C (GLYCOHEMOGLOBIN) 021 HEMOGLOBIN A1C (GLYCOHEMOGLOBIN) 023 HEMOGLOBIN A1C (GLYCOHEMOGLOBIN) 017 HEMOGLOBIN A1C (GLYCOHEMOGLOBIN) 021 HEMOGLOBIN A1C (GLYCOHEMOGLOBIN) 018 HEMOGLOBIN A1C (GLYCOHEMOGLOBIN) 021 HEMOGLOBIN A1C (GLYCOHEMOGLOBIN) 021 HEMOGLOBIN A1C (GLYCOHEMOGLOBIN) 022 HEMOGLOBIN A1C (GLYCOHEMOGLOBIN) 022 HEMOGLOBIN A1C (GLYCOHEMOGLOBIN) 018 HEMOGLOBIN A1C (GLYCOHEMOGLOBIN) 019 LIPID PANEL 01/30/2018 LIPID PANEL 10/18/2018 LIPID PANEL 02/26/2020 LIPID PANEL 11/26/2019 LIPID PANEL 01/17/2019 LIPID PANEL 08/01/2019 LIPID PANEL 05/28/2020 LIPID PANEL 07/08/2021 LIPID PANEL 11/08/2022 LIPID PANEL 07/24/2017 LIPID PANEL 12/10/2020 LIPID PANEL 09/27/2017 LIPID PANEL 04/15/2021 LIPID PANEL 01/19/2021 LIPID PANEL 08/01/2022 LIPID PANEL 06/12/2018 FREE T4 (FT4) 12/10/2020 FREE T4 (FT4) 09/27/2017 FREE T4 (FT4) 06/12/2018 FREE T4 (FT4) 01/10/2024 FREE T4 (FT4) 01/30/2018 FREE T4 (FT4) 10/18/2018 FREE T4 (FT4) 02/26/2020 FREE T4 (FT4) 01/17/2019 FREE T4 (FT4) 05/28/2020 FREE T4 (FT4) 07/08/2021 FREE T4 (FT4) 07/24/2017 TSH (THYROID STIMULATING HORMONE) 2016 TSH (THYROID STIMULATING HORMONE) 2020 TSH (THYROID STIMULATING HORMONE) 2024 TSH (THYROID STIMULATING HORMONE) 2020 TSH (THYROID STIMULATING HORMONE) 2017 TSH (THYROID STIMULATING HORMONE) 2017 TSH (THYROID STIMULATING HORMONE) 2023 TSH (THYROID STIMULATING HORMONE) 2017 TSH (THYROID STIMULATING HORMONE) 2023 TSH (THYROID STIMULATING HORMONE) 2019 TSH (THYROID STIMULATING HORMONE) 2023 TSH (THYROID STIMULATING HORMONE) 2018 TSH (THYROID STIMULATING HORMONE) 2024 TSH (THYROID STIMULATING HORMONE) 2019 MICROALBUMIN, RANDOM 11/16/2021 MICROALBUMIN, RANDOM 05/28/2020 MICROALBUMIN, RANDOM 01/19/2021 MICROALBUMIN, RANDOM 11/26/2019 MICROALBUMIN, RANDOM 10/18/2018 MICROALBUMIN, RANDOM 11/08/2022 CBC w DIFF 04/15/2021 CBC w DIFF 11/08/2022 CBC w DIFF 08/01/2022 CBC w DIFF 11/16/2021 CBC w DIFF 05/28/2020 CBC w DIFF 07/24/2017 CBC w DIFF 01/19/2021 CBC w DIFF 12/10/2020 CBC w DIFF 04/15/2025 CBC w DIFF 07/08/2021 CBC w DIFF 09/27/2017 CBC w DIFF 06/12/2018 CBC w DIFF 01/30/2018 CBC w DIFF 11/26/2019 CBC w DIFF 10/18/2018 CBC w DIFF 08/01/2019 CBC w DIFF 02/26/2020 CBC w DIFF 01/17/2019 CBC w DIFF 01/14/2025 FREE T3 (FT3) 01/14/2025 BONE DENSITY DEXA 10/21/2016 VITAMIN D 25-OH TOTAL 10/18/2018 VITAMIN D 25-OH TOTAL 02/26/2020 CBC WITH AUTO DIFF 11/22/2024 CBC WITH AUTO DIFF 07/19/2023 CBC WITH AUTO DIFF 01/10/2024 CBC WITH AUTO DIFF 03/27/2024 CBC WITH AUTO DIFF 06/27/2024 Lipid Panel 06/27/2024 Lipid Panel 01/14/2025 Lipid Panel 11/16/2021 Lipid Panel 04/15/2025 Lipid Panel 07/19/2023 Lipid Panel 01/10/2024 Lipid Panel 03/27/2024 Free T4 (Free Thyroxine) 03/27/2024 Free T4 (Free Thyroxine) 06/27/2024 Free T4 (Free Thyroxine) 01/14/2025 Free T4 (Free Thyroxine) 04/15/2025 ECG 12 lead EKG 11/22/2024 MM screening mammo BI 01/10/2024 MM tomosynthesis screening BI 01/14/2025 Hemoglobin A1c 04/15/2025 Hemoglobin A1c 03/27/2024 Hemoglobin A1c 06/27/2024 Hemoglobin A1c 01/14/2025 Hemoglobin A1c 07/19/2023 Hemoglobin A1c 01/10/2024 Next Appt Details Provider Name:Mike Marin , 07/17/2025 10:15:00 AM, [address] [place] [address] [place], [place], [phone], Provider Name:Mike Marin , 01/15/2026 10:00:00 AM, [address] [place] [address] PASTOR [place], KARTHIK WEBB, [address], Insurance Providers Payer Name Payer Address Payer Phone Subscriber Number Group Number Insured Name Patient Relationship to Insured Coverage Start Date Coverage End Date [facility] [address] [facility] [address] [place] [phone] [id number] Cherise Dash i Self - patient is the insured MEDICARE NGS [address] [place] [id number] Cherise Dash i Self - patient is the insured Medical (General) History Medical History History ICD Code diabetes insipidus, resolved right hip pain 2010 left breast abcess 06/2009 overweight graves disease treated with radiation iatrogenic hypothyroidism degenerative joint disease lumbosacral s pine 2006 left breast , ductal hyperplasia wi thout atypia right ankle osteomyelitis age 4 fracture right wrist astigmatism last mammogram 01/16/2013 BR&I : 3 right breast last colonscopy 02/2013 @ [facility] total left hip replacement o n 12/09/[address] Gonzales Wong at [facility] Surgical History Surgery Date(Month/Year) Arthroplasty right Hip Prosthetic Replac ement 2024-12-10 Right total hip replacement 05/01/2023 colonoscopy [id number] tubal ligation tonsillectomy lumbosacral spine decompressions procedu re 1997 fracture right wrist breast biopsy 2007
--- OUTSIDE RECORDS SUMMARY | 2025-07-15 11:19 | XMS_ITS | Patient Health Record ---
Author Organization [facility] Address [address] [place] [address] Care Team Providers Care [id number] Developer Name Role Phone Mike Marin MD Primary Care Provider Arnie Page Jr Unavailable Allergies Allergen (clinical drug ingredient) Drug/Non Drug Allergy documented on EMR Reaction Allergy Type Onset Date Status Byetta 5 MCG Pen hives Drug Allergy Active Reason For Referral No Information Medications Medication SIG (Take, Route, Frequency, Duration) [...] before breakfast Orally Once a day Active Immunizations Vaccine Route Administration Date Status Comme nts Influenza Unknown 06/26/2024 Administered Social History Tobacco Use: Social History [...] Negative Vital Signs Temperature 96.8 degrees Fahrenheit 06/26/2025 Blood pressure diastolic 01 mm Hg 06/26/2025 Height 62 in 06/26/2025 Blood pressure systolic 001 mm Hg 06/26/2025 Weight 225.4 lbs 06/26/2025 BMI 41.22 kg/m2 06/26/2025 Encounters Encounter Location Date Provider Diagnosis [facility] [address] [place] [address] 06/26/2025 Arnie Zimmerman Jr Encounter for screening for malignant neoplasm of colon Z12.11 Assessments Encounter Date Diagnosis (ICD Code) Assessment Notes Treatment Notes Treatment Clinical Notes Section Notes 06/26/2025 Encounter for screening for malignant neoplasm of colon (ICD-10 - Z12.11) Plan Of Treatment Future Test Test Name Order Date COLONOSCOPY 06/26/2025 Next Appt Details Provider Name:Arnie dukes Jr, 07/29/2025 09:50:00 AM, [address] [facility] , [place], [place], [phone], Insurance Providers Payer Name Payer Address Payer Phone Subscriber Number Group Number Insured Name Patient Relationship to Insured Coverage Start Date Coverage End Date [facility] [address] [place] [phone] [id number] [place] DIAS Self - patient is the insured 4 Medical (General) History Medical History History ICD Code diabetes type 2 hypertension urinary incontinence due to stress Surgical History Surgery Date(Month/Year) L hip replacement 2024 R hip replacement 2022 tubal ligaution 1990 lumbar disecectomy 2010 lumbar decomp 1996 Hospitalization History Reason Date(Month/Year) Hip replacement 11/2024
--- OUTSIDE RECORDS SUMMARY | 2025-07-15 11:19 | XMS_ITS ---
Author Name [facility] Organization Unknown Results Test Name/Text Value Interpretation Date Range Source Glucose Bld-mCnc 216.0 mg/dL Above high normal 12/09/2024 70 - 199 [facility] History of Medication Use Medication Directions Dispensed Refills Start Date End Date Stat dexAMETHasone (DECADRON) tablet 8 mg 8 mg, oral, Once, On Mon12/10/24 at 0800, For 1 dose, Phase II/On Unit, For 1 dose post-op. POD#1 in the morning. Hold for patients with the following procedures: I&D with or without poly exchange, resection arthroplasty, removal of prosthesis. 12/10/2024 completed atorvastatin (LIPITOR) tablet 10 mg 10 mg, oral, Nightly, First dose (after last reorder) on Mon12/09/24 at 2100, Recovery & On Unit 12/10/2024 active bisacodyL (DULCOLAX) suppository 10 mg 12/10/2024 active levothyroxine (SYNTHROID, LEVOTHROID) tablet 100 mcg 100 mcg, oral, Every morning before breakfast, First dose (after last reorder) on Mon12/09/24 at 2100, Recovery & On Unit, ORAL ROUTE: take on an empty stomach and separate from other medications. ENTERAL TUBE ROUTE: If newly initiated enteral nutrition duration is over 5 days, hold enteral nutritio 12/10/2024 active pantoprazole (PROTONIX) EC tablet 40 mg 40 mg, oral, Every morning before breakfast, First dose (after last reorder) on Mon12/10/24 at 0700, Recovery & On Unit, Do not crush, chew, or split. 12/10/2024 active valsartan (DIOVAN) tablet 80 mg 80 mg, oral, Every evening, First dose (after last reorder) on Mon12/09/24 at 2100, Recovery & On Unit 12/10/2024 active ceFAZolin (ANCEF) 2 g in sterile water 20 mL IV syringe 2 g, intravenous, Administer over 3 Minutes, Every 8 hours scheduled, First dose on Mon12/09/24 at 1530, For 2 doses, Phase II/On Unit, Give 8 hours after the intra-op dose, Indication: Prophylaxis-Surgic al 12/09/2024 completed acetaminophen (TYLENOL) 500 mg tablet Take 2 tablets (1,000 mg total) by mouth every 8 (eight) hours for 10 days. 12/09/2024 active HYDROmorphone (DILAUDID) injection 0.5 mg 0.5 mg, intravenous, Every 15 min PRN, severe pain, Starting on Mon12/09/24 at 0840, For 4 doses, Recovery (only), For pain (7-10). 12/09/2024 completed meloxicam (MOBIC) tablet 15 mg 15 mg, oral, Daily, First dose on Mon12/10/24 at 0900, Phase II/On Unit, DO NOT give for patients >80y.o. or eCrCl<15 mL/min <75yo: dose 15mg 75-80yo: dose 7.5mg 12/09/2024 active orphenadrine (NORFLEX) injection 30 mg 30 mg, intravenous, Once as needed, muscle spasms, Starting on Mon12/09/24 at 0840, For 1 dose, Recovery (only) 12/09/2024 completed aluminum-magnesium hydroxide-simethicon e (MAALOX) 200-200-20 mg/5 mL suspension 30 mL 12/09/2024 active aspirin 81 mg EC tablet Take 1 tablet (81 mg total) by mouth 2 (two) times a day with meals. 12/09/2024 active benzocaine-menthoL (CEPACOL SORE THROAT) 15-3.6 mg lozenge 1 lozenge 1 lozenge, Mouth/Throat, Every 2 hours PRN, sore throat, Starting on Mon12/09/24 at 1125, Phase II/On Unit 12/09/2024 active calcium carbonate (TUMS) chewable tablet 500 mg 12/09/2024 active lactated Ringer's infusion 100 mL/hr, intravenous, Continuous, Starting on Mon12/09/24 at 0615, Preprocedure 12/09/2024 active magnesium hydroxide (MILK OF MAGNESIA) 400 mg/5 mL suspension 30 mL 12/09/2024 active metoclopramide (REGLAN) injection 10 mg 12/09/2024 active ondansetron (PF) (ZOFRAN) injection 4 mg 12/09/2024 active oxyCODONE (ROXICODONE) immediate release tablet 10 mg 10 mg, oral, Every 4 hours PRN, moderate pain, Pain scale 4-6, Starting on Mon12/09/24 at 0854, Recovery & On Unit 12/09/2024 active oxyCODONE (ROXICODONE) 5 mg immediate release tablet Take 1 tablet (5 mg total) by mouth every 6 (six) hours if needed (Pain scale 1-3). Max Daily Amount: 20 mg 05/02/2023 active methocarbamoL (ROBAXIN) 750 mg tablet Take 1 tablet (750 mg total) by mouth every 6 (six) hours if needed for muscle spasms. 05/02/2023 active senna-docusate (PERICOLACE) 8.6-50 mg per tablet Take 1 tablet by mouth 2 (two) times a day. 05/02/2023 active dulaglutide (Trulicity) 1.5 mg/0.5 mL pen injector injection Inject 0.5 mL (1.5 mg total) under the skin 1 (one) time per week. Q MONDAY EVENING LAST DOSE 11/24/2024 03/27/2023 active liothyronine (CYTOMEL) tablet 5 mcg 5 mcg, oral, Every evening, First dose (after last reorder) on Mon12/09/24 at 2100, Recovery & On Unit 03/27/2023 active simvastatin (ZOCOR) 40 mg tablet Take 1 tablet (40 mg total) by mouth at bedtime. 03/04/2023 active levothyroxine (SYNTHROID, LEVOTHROID) 100 mcg tablet 1 (one) time each day in the evening. 02/07/2023 active acetaminophen (TYLENOL) 500 mg tablet Take 1 tablet (500 mg total) by mouth every 6 (six) hours if needed for mild pain. 5 aborted ibuprofen (ADVIL,MOTRIN) 200 mg tablet Take 3 tablets (600 mg total) by mouth every 6 (six) hours if needed. 5 aborted multivit-min/ferrous fumarate (MULTI VITAMIN ORAL) Take by mouth 1 (one) time each day in the evening. active omeprazole OTC (PriLOSEC OTC) 20 mg EC tablet Take 1 tablet (20 mg total) by mouth 1 (one) time each day in the evening. Do not crush, chew, or split. active Allergies Allergen Reaction Severity Comment Documented Date Source Statu s EXENATIDE HIVES 04/03/2023 [facility] active Problems Problem Status Onset Date Problem Type Date of Resoluti on Source Osteoarthritis of left hip active 2024-12-09 [address] [facility] Encounters Encounter Type Encounter Reason Primary Diagnosis Location Date Ambulatory Unilateral primary osteoarthritis, left hip Unilateral primary osteoarthritis, left hip [facility] 12/09/2024 Ambulatory Morbid (severe) obesity due to excess calories Morbid (severe) obesity due to excess calories [facility] [place] 05/01/2023 Amb[place] [facility] [place] 04/03/2023 Care Team Organization Name Specialty Phone Email Start Date End Da te [facility] 12/12/2024 [facility] 12/09/2024 [facility] [place] [place]
[2025-07-25 14:24] VITALS: BMI 41.2
--- NOTE | 2025-07-28 08:36 | HO.ANESPROP2 ---
Documented by User: Brii Rodríguez NP 07/28/25 08:36 HPI - Anesthesia Eval Consult details Narrative: 65yo F for Colonoscopy Anesthesia Pre-Procedure Meds Is the patient on any of the following meds?: GLP1/DPP4 PMFSH Past Medical History Medical History Urinary incontinence Diabetes HTN (hypertension) Surgical History Surgical History Hx of colonoscopy Hx of tubal ligation Hx of bilateral hip replacements History of back surgery Social History Social History Patient Tobacco Use Status: Former Tobacco user Have you been hit, kicked, punched, or otherwise hurt by someone within the past year? If so, by whom?: No Are you DNR?: No Advance Directives: No Advance Directives Information Provided: Yes Meds Allergies Allergy/AdvReac Type Severity Reaction Status Date / Time exenatide (From [place]) Allergy Intermediate Hives Verified 07/25/25 14:17 Home Medications ?Medication ?Instructions ?Recorded ?Confirmed ?Last Taken ?Type dulaglutide 1.5 mg/0.5 mL 1.5 mg subcut QWEEK 07/25/25 07/29/25 07/20/25 History subcutaneous pen injector (Trulicity) levothyroxine 100 mcg tablet 100 mcg PO DAILY 07/25/25 07/25/25 Unknown History liothyronine 5 mcg tablet 5 mcg PO DAILY 07/25/25 07/25/25 Unknown History simvastatin 40 mg tablet 40 mg PO QPM 07/25/25 07/25/25 Unknown History valsartan 80 mg tablet 80 mg PO DAILY 07/25/25 07/25/25 Unknown History Exam Height,Weight and Vital Signs: Height 5 ft 2 in Weight 102.24 kg Assessment and Plan Assessment Anesthesia Assessment: Chart Reviewed Documented by User: Lauren Sanchez MD 07/29/25 08:27 [facility] Past Medical History Medical History Urinary incontinence Diabetes HTN (hypertension) Family History Family history of problems with anesthesia: No Surgical History Surgical History Hx of colonoscopy Hx of tubal ligation Hx of bilateral hip replacements History of back surgery History of Problems with Anesthesia: No Social History Social History Patient Tobacco Use Status: Former Tobacco user Have you been hit, kicked, punched, or otherwise hurt by someone within the past year? If so, by whom?: No Are you DNR?: No Advance Directives: No Advance Directives Information Provided: Yes Meds Allergies Allergy/AdvReac Type Severity Reaction Status Date / Time exenatide (From [place]) Allergy Intermediate Hives Verified 07/25/25 14:17 Home Medications ?Medication ?Instructions ?Recorded ?Confirmed ?Last Taken ?Type dulaglutide 1.5 mg/0.5 mL 1.5 mg subcut QWEEK 07/25/25 07/29/25 07/20/25 History subcutaneous pen injector (Trulicity) levothyroxine 100 mcg tablet 100 mcg PO DAILY 07/25/25 07/25/25 Unknown History liothyronine 5 mcg tablet 5 mcg PO DAILY 07/25/25 07/25/25 Unknown History simvastatin 40 mg tablet 40 mg PO QPM 07/25/25 07/25/25 Unknown History valsartan 80 mg tablet 80 mg PO DAILY 07/25/25 07/25/25 Unknown History Exam Airway Mallampati Class: II TM Dist: <=3cm Neck ROM: Limited Heart: rrr Lungs: cta Assessment and Plan Assessment Anesthesia Assessment: Anesthesia Plan Discussed Final Anesthetic Review Family History of Problems with Anesthesia: No History of Problems with Anesthesia: No NPO: Yes ASA Class: III Final Preanesthetic Review: No Changes in Pt Med Stat, Meds/Allgs Chart Reviewed, Consent Obtained/Reviewed and Anes Risks/Benef Reviewed Patient Risk: Intermediate Procedure Risk: Low Anesthetic Plan Anesthetic Plan: MAC: and Agree w/ Assess. and Plan Disposition: Standard PACU
[2025-07-29 07:21] VITALS: BP 154/84; PULSE 100; RESP 20; TEMP 36.1; O2SAT 95; BMI 41.5
[2025-07-29 07:29] LABS: Glucose, Whole Blood 179 mg/dL (60-115)
[2025-07-29] MEDS: Lactated Ringers 1,000 ML 100 ML IVCONT (07:38)
--- NOTE | 2025-07-29 08:01 | MHC.SHP ---
Pre-Procedural Eval Section A - 24 Hr Update-Section A only Date of Service: 07/29/25 Section B - Complete if H&P > 30 days Chief Complaint: screening Details of Present Illness: see H&P no changes Relevant Family History (Specify if Yes): No Relevant Social History: None Present Medications: see Short Stay Collaborative assessment Medical History: No relevant PMH History of Previous Operations: No relevant previous surgery Allergies: Allergies Allergy/AdvReac Type Severity Reaction Status Date / Time exenatide (From [place]) Allergy Intermediate Hives Verified 07/25/25 14:17 Review of Systems Sugical H&P ROS: Negative: Constitution, Cardiovascular, Respiratory, Neurological, Psychiatric, Hem-Onc, Allergic/Immunologic, Gastrointestinal, Genitourinary, Musculoskeletal, Integumentary, Endocrine and Eyes/Ears/Nose/Throat Exam Surgical H&P Exam: Normal: HEENT, Normal: Heart, Normal: Lungs, Normal: Extremities, Normal: Abdomen, Normal: Skin and Normal: Neurological Plan Diagnosis/Plan: Unchanged I have reviewed the history and physical and performed a pertinent physical examination on my patient. No changes have occurred unless specified. Time Spent With Patient Time: Total time managing care of this patient today ____ minutes.
[2025-07-29 08:44] VITALS: BP 104/62; PULSE 92; RESP 16; TEMP 36.1; O2SAT 95
--- NOTE | 2025-07-29 08:56 | OP_ITS ---
DATE OF SERVICE: 07/29/2025 SURGEON: Arnie Zimmerman MD PREOPERATIVE DIAGNOSIS: POSTOPERATIVE DIAGNOSIS: PROCEDURE PERFORMED: Colonoscopy to the terminal ileum with biopsy Indications: Colon cancer screening. ESTIMATED BLOOD LOSS: COMPLICATIONS: ANESTHESIA: Monitored anesthesia care. ASSISTANTS: SPECIMENS: DESCRIPTION OF PROCEDURE: A history and physical performed. The risks and benefits of the procedure were explained to the patient. Informed consent was obtained. The patient was placed in the left lateral decubitus position. A digital rectal exam was performed and was normal. An Olympus pediatric video colonoscope was introduced into the rectum and advanced to the cecum. The cecum was identified by transillumination, palpation, and identification of ileocecal valve. Examination was performed. The scope was removed. She tolerated the procedure well and was taken to recovery area in stable condition. FINDINGS: The terminal ileum was examined and appeared normal. The visualized colonic mucosa was normal. The quality of the prep was good. Three polyps were identified, all were less than 10 mm, were removed with biopsy forceps. These were located at the cecum, 75 cm and in the rectum. There was mild sigmoid diverticulosis. Retroflexed examination showed some small internal hemorrhoids. IMPRESSION: Colon polyps. RECOMMENDATION: Followup biopsy results. MD GURU De La Garza/MIAHL / [id number] MTDD
[2025-07-29 08:59] VITALS: BP 129/78; PULSE 89; RESP 16; O2SAT 95
== END 2025-07-29 09:45 | disposition home or self-care (01) ==
PROVIDERS: PCP Internal Medicine Medical Oncology; Visit Provider Internal Medicine Gastroenterology
PROC: 0DJD8ZZ Inspection of Lower Intestinal Tract, Via Natural or Artificial Opening Endoscopic (ICD-10-PCS; CPT 45378; principal; 2025-07-29 08:10)
DX: Z12.11 Encounter for screening for malignant neoplasm of colon (principal); E11.9 Type 2 diabetes mellitus without complications; K64.8 Other hemorrhoids; K57.30 Diverticulosis of large intestine without perforation or abscess without bleeding; D12.7 Benign neoplasm of rectosigmoid junction; D12.0 Benign neoplasm of cecum; K63.5 Polyp of colon
CPT/HCPCS: 45380; 82947; 88305; J2704